=== PATIENT | male | born 1950 | race Caucasian/White ===

== ENCOUNTER → 2016-03-28 | Outpatient (CLI) | payer OTHER, BC ==
[~2016-03-28] MED LIST: CETI10TA10 PO; EPP3; GLUCPOW41 PO; MULTCAP42 PO; NEBI20TA2 PO; OMEGCAP2 PO; ROSU20TA PO; SENNTAB23 PO; TADA5TAB11 PO; TYLER650 PO; VITACAP26 PO
[2016-03-28 11:46] LABS: BLOOD UREA NITROGEN 16 mg/dl (7-18); BUN/CREATININE RATIO 19.3 (10-20); CALCIUM 9.7 mg/dl (8.5-10.1); CARBON DIOXIDE 23 mmol/L (21-32); CHLORIDE 109 mmol/L (98-107); CREATININE 0.82 mg/dl (0.60-1.40); GLUCOSE 96 mg/dl (70-99); POTASSIUM 4.3 mmol/L (3.5-5.1); SODIUM 142 mmol/L (136-145)
== END | disposition home or self-care (01) ==
LOC: C.LABBC 09:10
PROVIDERS: ATTEND Internal Medicine Geriatric Medicine
DX: Z11.59 Encounter for screening for other viral diseases (principal); I10 Essential (primary) hypertension

== ENCOUNTER → 2016-09-06 | Outpatient (CLI) | payer OTHER, BC ==
[2016-09-06 11:32] LABS: ESTIMATED AVERAGE GLUCOSE 120 mg/dl; HA1C FLAG Normal (Normal)
[2016-09-06 11:33] LABS: BLOOD UREA NITROGEN 17 mg/dl (7-18); BUN/CREATININE RATIO 20.1 (10-20); CALCIUM 9.5 mg/dl (8.5-10.1); CARBON DIOXIDE 26 mmol/L (21-32); CHLORIDE 109 mmol/L (98-107); CREATININE 0.85 mg/dl (0.60-1.40); GLUCOSE 111 mg/dl (70-99); POTASSIUM 4.2 mmol/L (3.5-5.1); SODIUM 141 mmol/L (136-145)
[2016-09-06 12:48] LABS: HEMATOCRIT 47.4 % (42-52); MEAN CELL VOLUME 89.3 fL (80-100); MEAN CORPUSCULAR HEMOGLOBIN 30.3 pg (25-34); MEAN PLATELET VOLUME 12.4 fL (7.4-10.4); PLATELET COUNT 130 K/uL (130-400); RED BLOOD COUNT 5.31 M/uL (4.7-6.1); WHITE BLOOD COUNT 5.19 K/uL (4.8-10.8)
[2016-09-06 12:52] LABS: BASO % 0.4 %; BASO ABS # 0.02 K/uL (0-0.2); COMPLETE YES; EOS % 1.5 %; IG% 0.2 %; LYMPH % 40.3 %; LYMPH ABS # 2.09 K/uL (1.2-3.4); MONO % 7.7 %; NEUT % 49.9 %
== END | disposition home or self-care (01) ==
LOC: C.LABBC 08:17
PROVIDERS: ATTEND Internal Medicine Geriatric Medicine
DX: I10 Essential (primary) hypertension (principal); E78.5 Hyperlipidemia, unspecified; R73.9 Hyperglycemia, unspecified; R35.1 Nocturia

== ENCOUNTER → 2017-03-08 | Outpatient (CLI) | payer OTHER, BC ==
[2017-03-08 14:12] LABS: ALBUMIN 3.8 gm/dl (3.4-5.0); ALT/SGPT 53 U/L (12-78); BLOOD UREA NITROGEN 20 mg/dl (7-18); CALCIUM 9.7 mg/dl (8.5-10.1); CARBON DIOXIDE 24 mmol/L (21-32); CHOLESTEROL 181 mg/dl (0-200); CREATININE 0.79 mg/dl (0.60-1.40); GLUCOSE 93 mg/dl (70-99); POTASSIUM 4.2 mmol/L (3.5-5.1); SODIUM 138 mmol/L (136-145)
[2017-03-08 14:15] LABS: ALKALINE PHOSPHATASE 55 U/L (45-117); AST/SGOT 28 U/L (15-37)
== END | disposition home or self-care (01) ==
LOC: C.LAB 11:02
PROVIDERS: ATTEND Internal Medicine Geriatric Medicine
DX: I10 Essential (primary) hypertension (principal); E78.5 Hyperlipidemia, unspecified; R73.9 Hyperglycemia, unspecified

== ENCOUNTER → 2017-09-25 | Outpatient (CLI) | payer OTHER, BC ==
[2017-09-25 14:36] LABS: BLOOD UREA NITROGEN 18 mg/dl (7-18); CALCIUM 9.7 mg/dl (8.5-10.1); CARBON DIOXIDE 24 mmol/L (21-32); CHOLESTEROL 193 mg/dl (0-200); CREATININE 0.78 mg/dl (0.60-1.40); GLUCOSE 121 mg/dl (70-99); POTASSIUM 4.1 mmol/L (3.5-5.1); SODIUM 138 mmol/L (136-145)
== END | disposition home or self-care (01) ==
LOC: C.LABBC 11:06
PROVIDERS: ATTEND Internal Medicine Geriatric Medicine
DX: E78.5 Hyperlipidemia, unspecified (principal); I10 Essential (primary) hypertension

== ENCOUNTER 2022-06-22 20:01 | Inpatient (IN) ==
[2022-06-22] MEDS ORDERED: SODIUM CHLORIDE 0.9% 1000ML 1,000 ML IV SCH (20:45)
--- NOTE | 2022-06-22 20:59 | XRay Report ---
XR chest 1V portable CLINICAL HISTORY: weakness COMPARISON STUDY: Chest CT May 04, 2022. Chest radiograph June 08, 2022. FINDINGS: Left subclavian Ovpgsa-a-Wirh is in place. There is no pneumothorax or pleural effusion. No consolidation is identified. Linear lower lung densities favor atelectasis. No evidence for pulmonar y edema. Cardiomediastinal silhouette is stable. IMPRESSION: No acute cardiopulmonary findings. ACT 112: Negative or not required by law. Electronically signed by: Javy Salcedo M.D. 06/22/2022 8:57 PM
[2022-06-22 21:13] LABS: Albumin Globulin Ratio 1.1 (0.9-2); BUN Creatinine Ratio 50.7 (10-20); Bilirubin,Total 1.4 mg/dl (0.2-1.0); Calcium 8.4 mg/dl (8.6-10.3); Creatinine Clr Calc Pharmacy 90.2 ml/min; Est GFR (African American) 105.9 ml/min; Est GFR (Non-African American) 91.4 ml/min; Globulin 2.7 gm/dl (2.5-4.0); Potassium 3.4 mmol/L (3.5-5.1); Total Protein 5.7 gm/dl (6.0-8.3)
[2022-06-22 22:03] LABS: Basophils # (auto) 0.02 K/uL (0-0.2); Basophils % (auto) 0.2 %; Eosinophils # (auto) 0.41 K/uL (0-0.50); Eosinophils % (auto) 3.5 %; Hematocrit (blood only) 44.7 % (42.0-52.0); Hemoglobin 15.4 g/dl (14.0-18.0); Immature Granulocytes # (auto) 0.03 K/uL (0.01-0.20); Immature Granulocytes % (auto) 0.3 %; Lymphocytes # (auto) 1.67 K/uL (1.2-3.4); Lymphocytes % (auto) 14.4 %; Mean Corpuscular Hemoglobin 29.4 pg (25.0-34.0); Mean Corpuscular Hgb Conc 34.5 g/dL (32.0-36.0); Mean Corpuscular Volume 85.5 fL (80.0-100.0); Mean Platelet Volume 12.4 fL (9.4-12.4); Monocytes # (auto) 0.71 K/uL (0.11-0.59); Monocytes % (auto) 6.1 %; Neutrophils # (auto) 8.72 K/uL (1.40-6.50); Neutrophils % (auto) 75.5 %; Platelet Count 136 K/uL (130-400); RDW Standard Deviation 40.1 fL (36.4-46.3); Red Blood Count 5.23 M/uL (4.70-6.10); White Blood Count 11.56 K/ul (4.8-10.8)
[2022-06-22] MEDS ORDERED: HYDROmorphone INJ 0.5 MG/0.5 ML SYR IV PRN (22:03)
[2022-06-22] MEDS ORDERED: ONDANSETRON INJ 2 MG/ML 2 ML VIAL IV STA (22:03)
[2022-06-22 22:22] LABS: Appearance Urine Clear (Clear); Bacteria Urine Automated Negative (Negative); Blood Urine Negative (Negative); Color Urine Orange; Epithelial Cell Urine Auto >30 /lpf (0-5); Glucose Urine UA Negative (Negative); Ketones Urine Negative (Negative); Leukocyte Esterase Urine Trace (Negative); Nitrite Urine Positive (Negative); Protein Urine Negative (Negative); RBC Urine Automated 0-4 /hpf (0-4); Specific Gravity Urine 1.034 (1.000-1.030); Urobilinogen Urine Positive (Negative)
[2022-06-22 22:26] LABS: Bilirubin Urine 1+ (Negative)
[2022-06-23] MEDS ORDERED: OPTIRAY 320 100ml IV ONE (00:37)
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
--- NOTE | 2022-06-23 00:59 | CT Scan Report ---
Exam(s): CT ABDOMEN + PELVIS With Contrast Oral - High Density Amt: 30 ML GASTRO, IV Amt: 87 ML OPTIRAY 320 EXAM: CT Abdomen and Pelvis With Intravenous Contrast CLINICAL HISTORY: Reason for exam: upper abd pain, vomiting, diarrhea, panc CA. TECHNIQUE: Axial computed tomography images of the abdomen and pelvis with intravenous contrast. CTDI is 7.53 mGy and DLP is 433.99 mGy-cm. Automated exposure control was utilized for the study. A dose lowering technique was utilized adhering to the principles of ALARA. CONTRAST: Patient received 30 ML GASTRO of Oral - High Density and 87 ML OPTIRAY 320 of IV contrast COMPARISON: No relevant prior studies available. FINDINGS: Lung bases: There are multiple nodular opacities throughout the visualized lower lung monge. These have an appearance that suggests inflammatory etiology. ABDOMEN: Liver: There is extensive hepatic metastatic disease with approximately 40% per replacement of liver parenchyma by metastatic deposits. Gallbladder and bile ducts: Unremarkable. No calcified stones. No ductal dilation. Pancreas: There is dilatation of the main pancreatic duct measuring up to 0.7 cm. This is associated with atrophy of the pancreatic tail. There is a low-density pancreatic lesion in this region measuring 2.1 x 1. 87 m (image 28 series 2). Spleen: Unremarkable. No splenomegaly. Adrenals: Unremarkable. No mass. Kidneys and ureters: There is a nonobstructing left lower pole intrarenal calculus. There is a nonobstructing right midpole intrarenal calculus. Stomach and bowel: There is mild fluid distention of multiple upper abdominal small bowel loops without focal point of obstruction. Contrast extends all the way to the:. No mucosal thickening. PELVIS: Appendix: No findings to suggest acute appendicitis. Bladder: Unremarkable. No mass. Reproductive: Unremarkable as visualized. ABDOMEN and PELVIS: Intraperitoneal space: There is a small volume of free fluid in the pelvis. No free air. Bones/joints: Degenerative disease of the thoracolumbar spine. No acute fracture. No dislocation. Soft tissues: Unremarkable. Vasculature: There is diffuse atherosclerotic calcification of the aorta and its major branch vessels. No abdominal aortic aneurysm. Lymph nodes: Unremarkable. No enlarged lymph nodes. IMPRESSION: 1. No acute pathology in the abdomen or pelvis. No evidence for bowel obstruction. 2. Findings of significant hepatic metastatic disease as well as a low- density lesion in the pancreas compatible with patient's given clinical history of pancreatic cancer. 3. Nodular opacities throughout the lungs which appear inflammatory but correlation with prior thoracic imaging is recommended. In the absence of prior thoracic imaging, further evaluation with dedicated thoracic CT is recommended on a nonemergent basis. Electronically signed by: Brayan Moeller MD 06/23/22 00:58 AM
[2022-06-23] MEDS: SODIUM CHLORIDE 0.9% 1000ML 1,000 ML IV SCH ×2 (01:49→10:08)
[2022-06-23] MEDS ORDERED: chlorproMAZINE HCL 25 MG TAB PO ONE (01:51)
[2022-06-23] MEDS ORDERED: PROCHLORPERAZINE MALEATE 10 MG TAB PO PRN (01:57)
[2022-06-23] MEDS ORDERED: CALCIUM CARBONATE 500 MG CHEWABLE TAB PO PRN (01:57)
[2022-06-23] MEDS ORDERED: EPINEPHrine INJ 1 MG/ML AMP IM PRN (03:02)
[2022-06-23] MEDS ORDERED: ACETAMINOPHEN 325 MG TAB PO PRN (03:03)
[2022-06-23] MEDS: LORazepam 0.5 MG TAB SL PRN ×2 (05:18→21:13)
[2022-06-23] MEDS: ASCORBIC ACID 500 MG TAB PO SCH (08:25)
[2022-06-23] MEDS: APIXABAN 5 MG TABLET PO SCH ×2 (08:25→21:13)
[2022-06-23] MEDS: CETIRIZINE HCL 10 MG TABLET PO SCH (08:25)
[2022-06-23] MEDS: MULTIVITAMIN TAB PO SCH (08:25)
[2022-06-23] MEDS: OMEGA-3 (PURIFIED FISH OIL) 1 GM CAP PO SCH ×2 (08:26→08:32)
--- NOTE | 2022-06-23 08:41 | Hospitalist Progress Note ---
Date of Service June 23, 2022 Assessment & Plan (1) Pancreatic cancer metastasized to liver: Plan: Acute nausea and vomiting with history of metastatic pancreatic cancer S/p chemotherapy one week prior to admission FOLFIRINOX 06/14/22 is an investigational study He has received IV fluids the prior 2 days in the clinic. Continue IV antiemetics and parenteral hydration (2) HTN (hypertension): Plan: Chronic and stable some mention of white coat hypertension , on metoprolol (3) DVT (deep venous thrombosis): Plan: DVT noted in may 19, on apixiban Admission and Anticipated Discharge Date Admission Date: June 23, 2022 Subjective Patient is feeling better did eat some breakfast not having additional abdominal pain diarrhea nausea or vomiting Physical Exam Physical Exam: He appears in no distress he is slightly forgetful his card exam is regular lungs are clear I cannot feel any defined organomegaly although his liver looks fairly large on imaging Abdomen is with normal bowel sounds soft no guarding no acute abdomen Results & Data Results & Data Vital Signs (Past 12 Hours) Vital Signs Temp Pulse Pulse Resp BP BP Pulse Ox 06/23/22 07:13 97.9 F 59 L 16 125/69 96 06/23/22 04:37 97.5 F L 61 16 124/76 96 06/23/22 04:00 54 L 21 109/50 L 96 06/23/22 03:30 54 L 17 115/56 L 94 06/23/22 04:24 55 L 18 109/50 L 96 06/23/22 03:00 55 L 16 104/48 L 94 06/23/22 02:32 56 L 26 H 95 06/23/22 01:30 57 L 21 131/61 95 06/23/22 01:00 58 L 17 124/56 L 95 06/23/22 00:45 85 26 H 06/23/22 00:00 59 L 20 135/64 96 06/22/22 23:30 60 21 130/66 97 06/22/22 23:00 60 21 137/70 96 06/23/22 00:27 58 L 06/22/22 22:30 56 L 18 132/67 95 06/22/22 22:00 52 L 15 151/70 H 99 06/22/22 21:30 55 L 24 151/73 H 95 06/22/22 21:00 54 L 18 138/69 95 06/22/22 21:26 56 L 18 96 O2 Del Method 06/23/22 07:13 Room Air 06/23/22 04:37 Room Air 06/23/22 04:00 06/23/22 03:30 06/23/22 04:24 Room Air 06/23/22 03:00 06/23/22 02:32 06/23/22 01:30 06/23/22 01:00 06/23/22 00:45 06/23/22 00:00 06/22/22 23:30 06/22/22 23:00 06/23/22 00:27 06/22/22 22:30 06/22/22 22:00 06/22/22 21:30 06/22/22 21:00 06/22/22 21:26 Room Air Laboratory Results Reviewed CBC Reviewed PRP Reviewed LFT Diagnostic Findings CT abdomen pelvis, 06/22/22 significant hepatic metastatic disease as well as a low- density lesion in the pancreas compatible with patient's given clinical history of pancreatic cancer. Nodular opacities throughout the lungs which appear inflammatory but correlation with prior thoracic imaging is recommended. PG Care Time/CCT Total # of Minutes Spent Total Time Spent with Patient: Total time spent is greater than 50% in coordination of care (as documented) at patient's floor/unit and/or counseling patient: Coding Level of Care Code 44516 SUB INP/OBS CARE 2/35MIN Diagnoses Pancreatic cancer metastasized to liver C25.9; C78.7 HTN (hypertension) I10 DVT (deep venous thrombosis) I82.409
[2022-06-23] MEDS ORDERED: POTASSIUM CHLORIDE 20 MEQ in SODIUM CHLORIDE 0.9% 1000ML 1,000 ML IV SCH (08:51)
[2022-06-23] MEDS ORDERED: NON-FORMULARY MEDICATION (Glucosamine-Chondroit-Vit C-Mn 500-400 mg Capsule) PO SCH (09:00)
[2022-06-23] MEDS: METOPROLOL TARTRATE 25 MG TAB PO SCH ×2 (09:37→21:13)
[2022-06-23] MEDS: NSS + 20MEQ KCL 20 MEQ/1,000 ML BAG IV SCH ×2 (10:03→23:53)
[2022-06-23] MEDS: ONDANSETRON 8MG OD TAB PO PRN (16:49)
[2022-06-23 18:28] LABS: Adenovirus F 40/41 PCR Not Detected (NotDetected); Astrovirus PCR Not Detected (NotDetected); Campylobacter PCR Not Detected (NotDetected); Cryptosporidium PCR Not Detected (NotDetected); Cyclospora cayetanensis PCR Not Detected (NotDetected); Entamoeba histolytica PCR Not Detected (NotDetected); Enteroaggregative E.coli(EAEC) Not Detected (NotDetected); Enteropathogenic E.coli (EPEC) Not Detected (NotDetected); Enterotoxigenic E.coli (ETEC) Not Detected (NotDetected); Giardia lamblia PCR Not Detected (NotDetected); Norovirus GI/GII PCR Not Detected (NotDetected); Plesiomonas shigelloides PCR Not Detected (NotDetected); Rotavirus A PCR Not Detected (NotDetected); Salmonella PCR Not Detected (NotDetected); Sapovirus PCR Not Detected (NotDetected); Shiga-like Toxin E.coli (STEC) Not Detected (NotDetected); Shigella/Enteroinvasive E.coli Not Detected (NotDetected); Vibrio cholerae PCR Not Detected (NotDetected); Vibrio species PCR Not Detected (NotDetected); Yersinia enterocolitica PCR Not Detected (NotDetected)
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
[2022-06-23] MEDS ORDERED: DOCUSATE SODIUM 100 MG CAP PO SCH (21:00)
[2022-06-23] MEDS ORDERED: OMEGA-3 (PURIFIED FISH OIL) 1 GM CAP PO SCH (21:00)
[2022-06-23] MEDS: ROSUVASTATIN CALCIUM 20 MG TAB PO SCH (21:13)
--- NOTE | 2022-06-23 22:54 | Electrocardiogram Report ---
Test Reason : Blood Pressure : / mmHG Vent. Rate : 053 BPM Atrial Rate : 053 BPM P-R Int : 134 ms QRS Dur : 098 ms QT Int : 512 ms P-R-T Axes : 028 -17 026 degrees QTc Int : 480 ms Sinus bradycardia Nonspecific T wave abnormality Prolonged QT Abnormal ECG When compared with ECG of 04-MAY-2022 11:19, Nonspecific T wave inversion now evident in Anterior leads Confirmed by Matias Dover ([id number]) on 06/23/2022 10:54:06 PM Referred By: Cassandra Amador Confirmed By:Matias Dover
[2022-06-23] MEDS ORDERED: SCOPOLAMINE 1 MG TDSY TD SCH (23:45)
[2022-06-24] MEDS: ONDANSETRON 8MG OD TAB PO PRN (07:39)
[2022-06-24] MEDS: LOPERAMIDE HCL 2 MG CAP PO SCH ×5 (08:44→20:17)
[2022-06-24] MEDS: APIXABAN 5 MG TABLET PO SCH ×2 (08:45→20:18)
[2022-06-24] MEDS: ASCORBIC ACID 500 MG TAB PO SCH (08:45)
[2022-06-24] MEDS: CETIRIZINE HCL 10 MG TABLET PO SCH (08:45)
[2022-06-24] MEDS: MULTIVITAMIN TAB PO SCH (08:45)
[2022-06-24] MEDS: METOPROLOL TARTRATE 25 MG TAB PO SCH ×2 (08:46→20:18)
[2022-06-24 09:07] LABS: Basophils # (auto) 0.02 K/uL (0-0.2); Basophils % (auto) 0.3 %; Eosinophils # (auto) 0.35 K/uL (0-0.50); Eosinophils % (auto) 4.4 %; Hematocrit (blood only) 40.6 % (42.0-52.0); Hemoglobin 13.9 g/dl (14.0-18.0); Immature Granulocytes # (auto) 0.03 K/uL (0.01-0.20); Immature Granulocytes % (auto) 0.4 %; Lymphocytes # (auto) 1.12 K/uL (1.2-3.4); Lymphocytes % (auto) 14.1 %; Mean Corpuscular Hemoglobin 29.8 pg (25.0-34.0); Mean Corpuscular Hgb Conc 34.2 g/dL (32.0-36.0); Mean Corpuscular Volume 87.1 fL (80.0-100.0); Mean Platelet Volume 11.5 fL (9.4-12.4); Monocytes # (auto) 0.61 K/uL (0.11-0.59); Monocytes % (auto) 7.7 %; Neutrophils % (auto) 73.1 %; Platelet Count 145 K/uL (130-400); RDW Coefficient of Variation 13.4 % (11.5-14.5); RDW Standard Deviation 41.9 fL (36.4-46.3); Red Blood Count 4.66 M/uL (4.70-6.10); White Blood Count 7.93 K/ul (4.8-10.8)
[2022-06-24 09:19] LABS: Albumin Level 2.4 gm/dl (3.4-5.0); BUN Creatinine Ratio 54.9 (10-20); Calcium 7.6 mg/dl (8.6-10.3); Creatinine Clr Calc Pharmacy 127.1 ml/min; Est GFR (African American) 122.7 ml/min; Est GFR (Non-African American) 105.9 ml/min; Globulin 2.4 gm/dl (2.5-4.0); Magnesium 1.9 mg/dl (1.7-2.4); Potassium 3.6 mmol/L (3.5-5.1); Total Protein 4.8 gm/dl (6.0-8.3)
[2022-06-24] MEDS: SODIUM CHLORIDE 0.9% 1000ML 1,000 ML IV SCH ×2 (10:22→18:07)
[2022-06-24] MEDS: CHECK SCOPOLAMINE PATCH PLACEMENT SCH ×2 (10:24→18:07)
[2022-06-24] MEDS: PSYLLIUM or GUAR GUM FIBER POWDER PACKET PO SCH (10:25)
[2022-06-24] MEDS: NSS + 20MEQ KCL 20 MEQ/1,000 ML BAG IV SCH ×3 (13:55→18:02)
[2022-06-24] MEDS ORDERED: LORazepam 0.5 MG TAB SL PRN (16:43)
[2022-06-24] MEDS ORDERED: ACETAMINOPHEN 500 MG TAB PO PRN (16:43)
[2022-06-24] MEDS ORDERED: ONDANSETRON INJ 2 MG/ML 2 ML VIAL IV ONE (16:44)
[2022-06-24] MEDS ORDERED: LORazepam 2 MG/1 ML VIAL IV STA (16:45)
--- NOTE | 2022-06-24 17:18 | Hospitalist Progress Note ---
Date of Service June 24, 2022 Assessment & Plan (1) Pancreatic cancer metastasized to liver: Plan: Acute nausea and vomiting with history of metastatic pancreatic cancer S/p chemotherapy one week prior to admission FOLFIRINOX 06/14/22 is an investigational study He has received IV fluids the prior 2 days in the clinic. Continue IV antiemetics and parenteral hydration, will try scheduled Reglan, pt states zofran did not work, and use prn lorazepam for nausea also since infectious diarrhea has been ruled out will use Imodium and Metamucil (2) HTN (hypertension): Plan: Chronic and stable some mention of white coat hypertension , on metoprolol (3) DVT (deep venous thrombosis): Plan: DVT noted in may 19, on apixiban Admission and Anticipated Discharge Date Admission Date: June 23, 2022 Subjective Patient and his for in the room when I revisited the patient in the afternoon we discussed the etiologies of his nausea vomiting is persistent nausea his insomnia we called his daughter Ana on speaker phone and try to get to some of their questions. He seems their ill prepared and understanding the gravity of pancreatic cancer was metastatic to the liver and are unsure about what his physical life will be like as it progresses. Physical Exam Physical Exam: Patient is awake and alert. Card exam is regular Lungs are clear Abdomen is NABS and soft there is an umbilical hernia which is reducible I cannot feel any defined organomegaly Results & Data Results & Data Vital Signs (Past 12 Hours) Vital Signs Temp Pulse Resp BP Pulse Ox O2 Del Method 06/24/22 15:11 98.2 F 62 18 137/71 96 Room Air 06/24/22 07:09 97.7 F 59 L 16 124/67 95 Room Air Diagnostic Findings reviewed cbc reviewed prp reviewed cmp PG Care Time/CCT Total # of Minutes Spent Total Time Spent with Patient: Total time spent is greater than 50% in coordination of care (as documented) at patient's floor/unit and/or counseling patient: Coding Level of Care Code 98429 SUB INP/OBS CARE 2/35MIN Diagnoses Pancreatic cancer metastasized to liver C25.9; C78.7 HTN (hypertension) I10 DVT (deep venous thrombosis) I82.409
[2022-06-24] MEDS: METOCLOPRAMIDE HCL 5 MG TABLET PO SCH (20:17)
[2022-06-24] MEDS: QUEtiapine FUMARATE 25 MG TABLET PO SCH (20:18)
[2022-06-24] MEDS: ROSUVASTATIN CALCIUM 20 MG TAB PO SCH (20:19)
[2022-06-24] MEDS ORDERED: ONDANSETRON 4 MG OD TAB PO SCH (21:00)
[2022-06-25] MEDS: LOPERAMIDE HCL 2 MG CAP PO SCH ×6 (01:24→21:14)
[2022-06-25] MEDS: NSS + 20MEQ KCL 20 MEQ/1,000 ML BAG IV SCH ×2 (04:05→15:22)
[2022-06-25 07:21] LABS: Basophils # (auto) 0.01 K/uL (0-0.2); Basophils % (auto) 0.2 %; Eosinophils # (auto) 0.44 K/uL (0-0.50); Eosinophils % (auto) 7.3 %; Hematocrit (blood only) 40.1 % (42.0-52.0); Hemoglobin 13.6 g/dl (14.0-18.0); Immature Granulocytes # (auto) 0.02 K/uL (0.01-0.20); Immature Granulocytes % (auto) 0.3 %; Lymphocytes # (auto) 1.32 K/uL (1.2-3.4); Lymphocytes % (auto) 21.8 %; Mean Corpuscular Hemoglobin 29.4 pg (25.0-34.0); Mean Corpuscular Hgb Conc 33.9 g/dL (32.0-36.0); Mean Corpuscular Volume 86.8 fL (80.0-100.0); Mean Platelet Volume 11.3 fL (9.4-12.4); Monocytes % (auto) 11.6 %; Neutrophils # (auto) 3.57 K/uL (1.40-6.50); Neutrophils % (auto) 58.8 %; Platelet Count 148 K/uL (130-400); RDW Coefficient of Variation 13.7 % (11.5-14.5); RDW Standard Deviation 42.5 fL (36.4-46.3); Red Blood Count 4.62 M/uL (4.70-6.10); White Blood Count 6.06 K/ul (4.8-10.8)
[2022-06-25 07:39] LABS: Albumin Globulin Ratio 1.1 (0.9-2); Albumin Level 2.4 gm/dl (3.4-5.0); BUN Creatinine Ratio 46.4 (10-20); Calcium 7.6 mg/dl (8.6-10.3); Creatinine Clr Calc Pharmacy 115.7 ml/min; Est GFR (African American) 118.1 ml/min; Est GFR (Non-African American) 101.9 ml/min; Globulin 2.2 gm/dl (2.5-4.0); Magnesium 1.8 mg/dl (1.7-2.4); Potassium 3.6 mmol/L (3.5-5.1); Total Protein 4.6 gm/dl (6.0-8.3)
[2022-06-25] MEDS: PSYLLIUM or GUAR GUM FIBER POWDER PACKET PO SCH (08:39)
[2022-06-25] MEDS: APIXABAN 5 MG TABLET PO SCH ×2 (08:40→20:49)
[2022-06-25] MEDS: METOCLOPRAMIDE HCL 5 MG TABLET PO SCH ×4 (08:41→20:49)
[2022-06-25] MEDS: ASCORBIC ACID 500 MG TAB PO SCH (08:41)
[2022-06-25] MEDS: CETIRIZINE HCL 10 MG TABLET PO SCH (08:41)
[2022-06-25] MEDS: METOPROLOL TARTRATE 25 MG TAB PO SCH ×2 (08:41→20:48)
[2022-06-25] MEDS ORDERED: DEXTROSE 10% 1,000 ML IV PRN (14:03)
[2022-06-25] MEDS ORDERED: dexAMETHasone 4 MG in SYRINGE 0 ML IV ONE (14:05)
[2022-06-25] MEDS ORDERED: LORazepam 0.5 MG TAB PO PRN (14:06)
--- NOTE | 2022-06-25 14:12 | Hospitalist Progress Note ---
Date of Service June 25, 2022 Assessment & Plan (1) Pancreatic cancer metastasized to liver: Plan: Acute nausea and vomiting with history of metastatic pancreatic cancer S/p chemotherapy one week prior to admission FOLFIRINOX 06/14/22 is an investigational study He has received IV fluids the prior 2 days in the clinic. Continue IV antiemetics and parenteral hydration we will switch parenteral hydration to PPN when available , will try to add Marinol to scheduled Reglan, +1 dose of dexamethasone intravenously and use prn lorazepam for nausea also since infectious diarrhea has been ruled out continue to offer as needed Imodium and try scheduled Metamucil (2) HTN (hypertension): Plan: Chronic and stable some mention of white coat hypertension , on metoprolol (3) DVT (deep venous thrombosis): Plan: DVT noted in may 19, on apixiban Admission and Anticipated Discharge Date Admission Date: June 23, 2022 Subjective Patient had good sleep with the Seroquel but still has persistent nausea and anorexia. We attempted to give him some Ativan last evening and then scheduled Reglan without much help. Patient cannot adequately tell me whether the schedule Ativan did help in any way. Subsequently with concern for mental status changes would not pursue Ativan significantly but today we will try 1 dose of dexamethasone instituting Marinol therapy and perhaps discontinuing Reglan 1 day if not much help Otherwise laboratories are stable he continues with loose bowel movements which have since been checked to be negative for infectious etiologies Physical Exam Physical Exam: Patient is awake and alert. Card exam is regular Lungs are clear Abdomen is NABS and soft there is an umbilical hernia which is reducible I cannot feel any defined organomegaly Results & Data Results & Data Vital Signs (Past 12 Hours) Vital Signs Temp Pulse Resp BP Pulse Ox O2 Del Method 06/25/22 08:39 64 06/25/22 07:41 98.6 F 66 16 124/64 94 Room Air PG Care Time/CCT Total # of Minutes Spent Total Time Spent with Patient: Total time spent is greater than 50% in coordination of care (as documented) at patient's floor/unit and/or counseling patient: Coding Level of Care Code 49316 SUB INP/OBS CARE 2/35MIN Diagnoses Pancreatic cancer metastasized to liver C25.9; C78.7 HTN (hypertension) I10 DVT (deep venous thrombosis) I82.409
[2022-06-25] MEDS ORDERED: FAMOTIDINE 20 MG in SYRINGE 3 ML IV ONE (15:15)
[2022-06-25] MEDS: QUEtiapine FUMARATE 25 MG TABLET PO SCH (20:48)
[2022-06-25] MEDS: droNABinol 2.5 MG CAP PO SCH (21:14)
[2022-06-25] MEDS: FAMOTIDINE 20 MG in SYRINGE 3 ML IV SCH (21:14)
[2022-06-26] MEDS: LOPERAMIDE HCL 2 MG CAP PO SCH ×6 (00:38→19:50)
[2022-06-26] MEDS: NSS + 20MEQ KCL 20 MEQ/1,000 ML BAG IV SCH ×2 (02:00→13:45)
[2022-06-26] MEDS ORDERED: Nursing to Pharmacy Communication SCH (04:15)
[2022-06-26 07:53] LABS: Hematocrit (blood only) 38.9 % (42.0-52.0); Mean Corpuscular Hemoglobin 29.2 pg (25.0-34.0); Mean Corpuscular Hgb Conc 33.4 g/dL (32.0-36.0); Mean Corpuscular Volume 87.4 fL (80.0-100.0); Mean Platelet Volume 9.8 fL (9.4-12.4); Platelet Count 167 K/uL (130-400); RDW Coefficient of Variation 13.8 % (11.5-14.5); RDW Standard Deviation 43.3 fL (36.4-46.3); Red Blood Count 4.45 M/uL (4.70-6.10); White Blood Count 3.89 K/ul (4.8-10.8)
[2022-06-26 08:17] LABS: Albumin Level 2.3 gm/dl (3.4-5.0); BUN Creatinine Ratio 34.9 (10-20); Calcium 7.5 mg/dl (8.6-10.3); Creatinine Clr Calc Pharmacy 102.9 ml/min; Est GFR (African American) 112.5 ml/min; Est GFR (Non-African American) 97.1 ml/min; Globulin 2.3 gm/dl (2.5-4.0); Magnesium 1.8 mg/dl (1.7-2.4); Phosphorus 2.4 mg/dl (2.5-4.9); Potassium 4.2 mmol/L (3.5-5.1); Total Protein 4.6 gm/dl (6.0-8.3)
--- NOTE | 2022-06-26 08:23 | Hospitalist Progress Note ---
Date of Service June 26, 2022 Assessment & Plan (1) Pancreatic cancer metastasized to liver: Plan: Acute nausea and vomiting with history of metastatic pancreatic cancer now improving S/p chemotherapy one week prior to admission FOLFIRINOX 06/14/22 is an investigational study Some reduction in his symptoms able to have some small bites of food on 06/26/2022, continue IV antiemetics and parenteral hydration , Seems to have some success with Marinol to scheduled Reglan, +1 dose of dexamethasone intravenously and use prn lorazepam for nausea also We have also begun IV Pepcid since infectious diarrhea has been ruled out continue to offer as needed Imodium (2) HTN (hypertension): Plan: Chronic and stable some mention of white coat hypertension , on metoprolol (3) DVT (deep venous thrombosis): Plan: DVT noted in may 19, on apixiban Admission and Anticipated Discharge Date Admission Date: June 23, 2022 Subjective Patient improvement of his nausea and vomiting able to eat some food this morning we will hold off on TPN/PPN. Continue Seroquel for sleep. Overall encouraging signs but this may be just be that we are getting away from the [facility] of his chemotherapeutic treatment. Continuing scheduled Reglan and dronabinol right now help with his GI effects Physical Exam Physical Exam: Patient is awake and alert. Card exam is regular Lungs are clear Abdomen is NABS and soft there is an umbilical hernia which is reducible Results & Data Results & Data Vital Signs (Past 12 Hours) Vital Signs Temp Pulse Resp BP Pulse Ox O2 Del Method 06/26/22 07:22 97.3 F L 55 L 16 127/72 95 Room Air 06/25/22 20:43 97.9 F 61 18 123/76 96 Room Air Laboratory Results Reviewed CBC Reviewed CMP PG Care Time/CCT Total # of Minutes Spent Total Time Spent with Patient: Total time spent is greater than 50% in coordination of care (as documented) at patient's floor/unit and/or counseling patient: Coding Level of Care Code 18226 SUB INP/OBS CARE 2/35MIN Diagnoses Pancreatic cancer metastasized to liver C25.9; C78.7 HTN (hypertension) I10 DVT (deep venous thrombosis) I82.409
[2022-06-26] MEDS: METOPROLOL TARTRATE 25 MG TAB PO SCH ×2 (08:52→22:16)
[2022-06-26] MEDS: APIXABAN 5 MG TABLET PO SCH ×2 (08:52→22:16)
[2022-06-26] MEDS: METOCLOPRAMIDE HCL 5 MG TABLET PO SCH ×4 (08:52→21:25)
[2022-06-26] MEDS: PSYLLIUM or GUAR GUM FIBER POWDER PACKET PO SCH (08:54)
[2022-06-26] MEDS: FAMOTIDINE 20 MG in SYRINGE 3 ML IV SCH ×2 (09:00→21:25)
[2022-06-26] MEDS: droNABinol 2.5 MG CAP PO SCH ×3 (09:10→21:25)
[2022-06-26] MEDS ORDERED: TPN/PPN CONSULT PHARMACY PRN (16:00)
[2022-06-26] MEDS: QUEtiapine FUMARATE 25 MG TABLET PO SCH (22:16)
[2022-06-27] MEDS: NSS + 20MEQ KCL 20 MEQ/1,000 ML BAG IV SCH ×2 (00:25→10:29)
[2022-06-27] MEDS: LOPERAMIDE HCL 2 MG CAP PO SCH ×6 (00:26→20:00)
[2022-06-27 07:08] LABS: Albumin Globulin Ratio 1.1 (0.9-2); Albumin Level 2.2 gm/dl (3.4-5.0); BUN Creatinine Ratio 32.8 (10-20); Bilirubin,Total 0.9 mg/dl (0.2-1.0); Calcium 7.2 mg/dl (8.6-10.3); Creatinine Clr Calc Pharmacy 116.1 ml/min; Est GFR (Non-African American) 98.4 ml/min; Magnesium 1.7 mg/dl (1.7-2.4); Phosphorus 1.8 mg/dl (2.5-4.9); Potassium 3.9 mmol/L (3.5-5.1); Total Protein 4.2 gm/dl (6.0-8.3)
[2022-06-27] MEDS: METOCLOPRAMIDE HCL 5 MG TABLET PO SCH ×4 (07:51→20:00)
[2022-06-27] MEDS: APIXABAN 5 MG TABLET PO SCH ×2 (07:51→21:17)
[2022-06-27] MEDS: METOPROLOL TARTRATE 25 MG TAB PO SCH ×2 (07:51→21:18)
[2022-06-27] MEDS: FAMOTIDINE 20 MG in SYRINGE 3 ML IV SCH ×2 (08:13→20:00)
[2022-06-27] MEDS: droNABinol 2.5 MG CAP PO SCH ×3 (08:13→20:00)
[2022-06-27] MEDS ORDERED: GADOBUTROL 65ML VIAL IV ONE (09:26)
--- NOTE | 2022-06-27 11:42 | Magnetic Resonance Report ---
Brain MRI WITH AND WITHOUT CONTRAST HISTORY: Headaches. History of pancreatic cancer. eval for metastatic disease TECHNIQUE: Multiplanar multisequence MRI of the brain was performed both before and after the intrave nous administration of contrast. COMPARISON STUDY: None. FINDINGS: There is no mass, hematoma, midline shift, or acute infarct. The paranasal sinuses are maryellen r. The mastoid air cells are clear. The ventricles and sulci demonstrate mild age-related involutiona l changes. Scattered foci of T2 hyperintensity seen within the periventricular and subcortical white matter are nonspecific but suggestive of mild microvascular ischemic changes. The major vascular flow voids at the skull base are well-maintained. Prior bilateral lens replacement. No abnormal enhanceme nt within the brain. Small linear focus of enhancement within the right parietal lobe on image 14 is consistent with a developmental venous anomaly. This is considered to be a normal variant. IMPRESSION: 1. No acute infarct or intracranial hemorrhage. 2. Mild atrophy and mild microvascular ischemic changes. 3. No evidence for intracranial metastatic disease. ACT 112: Negative or not required by law. Electronically signed by: José Manuel Pimentel M.D. 06/27/2022 11:40 AM
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
[2022-06-27] MEDS ORDERED: SODIUM PHOSPHATE 3 MMOL/1 ML INFUSION IV STA (16:33)
--- NOTE | 2022-06-27 16:40 | Hospitalist Progress Note ---
Date of Service June 27, 2022 Assessment & Plan (1) Pancreatic cancer metastasized to liver: Plan: Acute nausea and vomiting with history of metastatic pancreatic cancer now improving S/p chemotherapy one week prior to admission FOLFIRINOX 06/14/22 is an investigational study Some reduction in his symptoms able to have some small bites of food on 06/26/2022, continue IV antiemetics and parenteral hydration , Seems to have some success with Marinol to scheduled Reglan, use prn lorazepam for nausea also will continue IV Pepcid, one dose of decadron was used since infectious diarrhea has been ruled out continue to offer as needed Imodium (2) HTN (hypertension): Plan: Chronic and stable some mention of white coat hypertension , on metoprolol (3) DVT (deep venous thrombosis): Plan: DVT noted in may 19, on apixiban Plan Family requested Palliative care consult Admission and Anticipated Discharge Date Admission Date: June 23, 2022 Subjective Patient improvement of his nausea and vomiting able to eat some food, Has good sleep, continue Seroquel. Overall encouraging signs but this may be just be that we are getting away from the [place] of his chemotherapeutic treatment. Continuing scheduled Reglan and dronabinol but with some mild nausea will increase his dronabinol Physical Exam Physical Exam: Patient is awake and alert. Card exam is regular Lungs are clear Abdomen is NABS and soft there is an umbilical hernia which is reducible Results & Data Results & Data Vital Signs (Past 12 Hours) Vital Signs Temp Pulse Resp BP Pulse Ox O2 Del Method 06/27/22 15:44 98.2 F 60 18 119/70 96 Room Air 06/27/22 07:53 98.2 F 59 L 18 124/68 94 Room Air PG Care Time/CCT Total # of Minutes Spent Total Time Spent with Patient: Total time spent is greater than 50% in coordination of care (as documented) at patient's floor/unit and/or counseling patient: Coding Level of Care Code 87326 SUB INP/OBS CARE 2/35MIN Diagnoses Pancreatic cancer metastasized to liver C25.9; C78.7 HTN (hypertension) I10 DVT (deep venous thrombosis) I82.409
[2022-06-27] MEDS ORDERED: SODIUM PHOSPHATE 15 MMOL in DEXTROSE 5% 250 ML IV ONE (16:45)
[2022-06-27] MEDS: QUEtiapine FUMARATE 25 MG TABLET PO SCH (21:18)
[2022-06-28] MEDS: LOPERAMIDE HCL 2 MG CAP PO SCH ×6 (00:29→20:52)
--- NOTE | 2022-06-28 06:40 | Hospitalist Progress Note ---
Date of Service June 28, 2022 Assessment & Plan (1) Pancreatic cancer metastasized to liver: Plan: Nausea seems to be finally coming under control but is markedly atypical in its degree and duration so far out after his single cycle of reduced dose FOLFIRINOX. Nevertheless, there are no clear signs of obstruction, intra- abdominal physical disease that is causing problems, AERIAL INSTALLER metastases, or other immediate explanations beyond the combination of chemotherapy toxicity and the liver metastases. After extensive conversation with the patient, his and daughter we have determined that we will discontinue FOLFIRINOX altogether, concerned that even with dose reduction and more aggressive antinausea agents there will still be a risk of significant GI side effects and in reducing the doses of the agents, lesser potential efficacy. We have provisionally discussed alternative gemcitabine/Abraxane which is usually a much better tolerated regimen though in productive discussions with palliative care he is also looking at to what extent he wants to even pursue any moderately aggressive treatment versus a more pure symptom management based approach. [employer] also suggest some alternative possibilities with [facility] Anticipate discharge soon, we will reconvene with the patient in our offices next week to finalize a plan for going forward Plan Anticipate discharge soon, will reassess patient and his options next week with a provisional plan to consider gemcitabine/Abraxane though an ongoing discussion as to where chemotherapy versus palliative care makes the most sense for him going forward Admission and Anticipated Discharge Date Admission Date: June 23, 2022 Subjective Slowly recovering, he is able to ambulate in his room without great difficulty and able to take at least small meals reasonably well Physical Exam Physical Exam: Vital signs stable, lung and cardiac exam stable, abdomen does not seem to be markedly tender or distended Results & Data Results & Data Vital Signs (Past 12 Hours) Vital Signs Temp Pulse Resp BP Pulse Ox O2 Del Method 06/27/22 21:16 36.8 C 63 18 134/76 98 Room Air PG Care Time/CCT Total # of Minutes Spent Total Time Spent with Patient: Total time spent is greater than 50% in coordination of care (as documented) at patient's floor/unit and/or counseling patient: Coding Level of Care Code 18305 SUB INP/OBS CARE 1/25MIN History Problem Focused Exam Problem Focused Medical Decision Making High Complexity Diagnoses Pancreatic cancer metastasized to liver C25.9; C78.7
[2022-06-28 07:25] LABS: BUN Creatinine Ratio 16.4 (10-20); Calcium 7.3 mg/dl (8.6-10.3); Creatinine Clr Calc Pharmacy 116.1 ml/min; Est GFR (Non-African American) 98.4 ml/min; Magnesium 1.7 mg/dl (1.7-2.4); Phosphorus 2.7 mg/dl (2.5-4.9); Potassium 3.5 mmol/L (3.5-5.1)
[2022-06-28] MEDS: METOPROLOL TARTRATE 25 MG TAB PO SCH ×2 (07:52→20:52)
[2022-06-28] MEDS: droNABinol 2.5 MG CAP PO SCH ×3 (07:52→20:52)
[2022-06-28] MEDS: APIXABAN 5 MG TABLET PO SCH ×2 (07:53→20:52)
[2022-06-28] MEDS: METOCLOPRAMIDE HCL 5 MG TABLET PO SCH ×4 (07:53→20:53)
[2022-06-28] MEDS: FAMOTIDINE 20 MG in SYRINGE 3 ML IV SCH ×2 (07:57→21:04)
[2022-06-28] MEDS: HEPARIN 100 UNIT/ML 5ML FLUSH FLUSH PRN (07:57)
--- NOTE | 2022-06-28 10:01 | Palliative Care Progress Note ---
Date of Service June 28, 2022 Assessment & Plan (1) Palliative care encounter: Plan: I was unable to meet with family this morning. Mr. Pepper would like palliative care f/u as an outpatient if Dr. Perez is agreeable. Admission and Anticipated Discharge Date Admission Date: June 23, 2022 Subjective Reports feeling a little better this morning. Denies nausea or pain. Review of Systems Review of Systems: ESAS Pain 0/3 Dyspnea 0/3 Nausea 0/3 Drowsiness 0/3 Physical Exam Constitutional: no acute distress ENMT: Mouth: oral mucous membranes not dry Respiratory: normal respiratory effort; no labored breathing Neurologic: Speech / Cognition: normal cognition Psychiatric: Orientation: oriented x 3 Affect: euthymic affect Genitourinary: continent Results & Data Vital Signs (Past 12 Hours) Vital Signs Temp Pulse Resp BP Pulse Ox O2 Del Method 06/28/22 07:38 98.1 F 62 16 121/67 94 Room Air PG Care Time/CCT Total # of Minutes Spent Total Time Spent with Patient: Total time spent is greater than 50% in coordination of care (as documented) at patient's floor/unit and/or counseling patient: Coding Level of Care Code 42605 SUB INP/OBS CARE 1/25MIN Diagnoses Palliative care encounter Z51.5
--- NOTE | 2022-06-28 18:31 | Hospitalist Progress Note ---
Date of Service June 28, 2022 Assessment & Plan (1) Pancreatic cancer metastasized to liver: Plan: Acute nausea and vomiting with history of metastatic pancreatic cancer now improving S/p chemotherapy one week prior to admission FOLFIRINOX 06/14/22 is an investigational study Some reduction in his symptoms able to have some small bites of food on 06/26/2022, continue IV antiemetics and parenteral hydration , Seems to have some success with Marinol to scheduled Reglan, use prn lorazepam for nausea also will continue IV Pepcid, one dose of decadron was used since infectious diarrhea has been ruled out continue to offer as needed Imodium (2) HTN (hypertension): Plan: Chronic and stable some mention of white coat hypertension , on metoprolol (3) DVT (deep venous thrombosis): Plan: DVT noted in may 19, on apixiban Plan Family requested Palliative care consult appreciate their input and guidance Admission and Anticipated Discharge Date Admission Date: June 23, 2022 Subjective pt feels improved, increased diet still some mild nausea Physical Exam Physical Exam: Patient is awake and alert. Card exam is regular Lungs are clear Abdomen is NABS and soft there is an umbilical hernia which is reducible Results & Data Results & Data Vital Signs (Past 12 Hours) Vital Signs Temp Pulse Resp BP Pulse Ox O2 Del Method 06/28/22 15:45 97.9 F 64 18 113/62 94 Room Air 06/28/22 07:38 98.1 F 62 16 121/67 94 Room Air Laboratory Results Reviewed PRP PG Care Time/CCT Total # of Minutes Spent Total Time Spent with Patient: Total time spent is greater than 50% in coordination of care (as documented) at patient's floor/unit and/or counseling patient: Coding Level of Care Code 71958 SUB INP/OBS CARE 2/35MIN Diagnoses Pancreatic cancer metastasized to liver C25.9; C78.7 HTN (hypertension) I10 DVT (deep venous thrombosis) I82.409
[2022-06-28] MEDS: QUEtiapine FUMARATE 25 MG TABLET PO SCH (20:53)
[2022-06-29] MEDS: LOPERAMIDE HCL 2 MG CAP PO SCH ×4 (01:20→11:26)
[2022-06-29] MEDS: FAMOTIDINE 20 MG in SYRINGE 3 ML IV SCH (08:00)
[2022-06-29] MEDS: droNABinol 2.5 MG CAP PO SCH (08:00)
[2022-06-29] MEDS: APIXABAN 5 MG TABLET PO SCH (08:01)
[2022-06-29] MEDS: METOCLOPRAMIDE HCL 5 MG TABLET PO SCH ×2 (08:01→11:26)
[2022-06-29] MEDS: METOPROLOL TARTRATE 25 MG TAB PO SCH (08:01)
[2022-06-29] MEDS: HEPARIN 100 UNIT/ML 5ML FLUSH FLUSH PRN (15:05)
--- NOTE | 2022-06-29 17:28 | Hospitalist Progress Note ---
Date of Service June 29, 2022 Assessment & Plan (1) Pancreatic cancer metastasized to liver: Plan: Acute nausea and vomiting with history of metastatic pancreatic cancer now improving S/p chemotherapy one week prior to admission FOLFIRINOX 06/14/22 is an investigational study Some reduction in his symptoms able to have some small bites of food on 06/26/2022, continue IV antiemetics and parenteral hydration , Seems to have some success with Marinol to scheduled Reglan, use prn lorazepam for nausea also will continue IV Pepcid, one dose of decadron was used since infectious diarrhea has been ruled out continue to offer as needed Imodium (2) HTN (hypertension): Plan: Chronic and stable some mention of white coat hypertension , on metoprolol (3) DVT (deep venous thrombosis): Plan: DVT noted in may 19, on apixiban Plan Family requested Palliative care consult appreciate their input and guidance Admission and Anticipated Discharge Date Admission Date: June 23, 2022 Physical Exam Physical Exam: Patient is awake and alert. Card exam is regular Lungs are clear Abdomen is NABS and soft there is an umbilical hernia which is reducible Results & Data Results & Data Vital Signs (Past 12 Hours) Vital Signs Temp Pulse Pulse Resp BP BP Pulse Ox 06/29/22 13:28 97.9 F 63 70 17 120/69 118/60 96 06/29/22 08:07 97.9 F 70 17 120/69 96 O2 Del Method 06/29/22 13:28 06/29/22 08:07 Room Air PG Care Time/CCT Total # of Minutes Spent Total Time Spent with Patient: Total time spent is greater than 50% in coordination of care (as documented) at patient's floor/unit and/or counseling patient: Coding Diagnoses Pancreatic cancer metastasized to liver C25.9; C78.7 HTN (hypertension) I10 DVT (deep venous thrombosis) I82.409
--- NOTE | 2022-06-29 17:31 | Discharge Summary ---
Date of Service June 29, 2022 Admission HPI Per Admitting Provider The patient is a 72-year-old male with past medical history including hypertension, venous insufficiency, DVT, thrombocytopenia, pancreatic cancer metastasis metastatic to liver, arthritis, esophageal dysmotility, dyslipidemia, BPH, umbilical hernia and prediabetes. He is status post left subclavian port placement on 06/08/2022, and began chemotherapy last week. He reports his symptoms had been present prior to chemotherapy beginning, but it worsened since that time. He also notes the development of hiccups over the past several days. He has had a 32 pound weight loss in the past few months Significant laboratories: Total bilirubin 1.4, AST 64, ALT 85, ALP 506, albumin 3.0, sodium 133, potassium 3.4, glucose 156. CT abdomen pelvis with liver metastases, pancreatic lesion and multiple lung nodules Principal Diagnosis post chemotherapy nausea and vomiting metastatic pancreatic cancer Discharge Exam pt with no distress, abdomen is benign Discharge Data Allergies Allergy/AdvReac Type Severity Reaction Status Date / Time amlodipine [From Exforge] Allergy Severe Swelling Verified 06/23/22 00:58 of Lip/Tongue/Throat valsartan [From Exforge] Allergy Severe Swelling Verified 06/23/22 00:58 of Lip/Tongue/Throat atorvastatin [From Lipitor] Allergy Intermediate Muscle Pain Verified 06/23/22 00:58 aspirin Allergy Mild Hives Verified 06/23/22 00:58 NSAIDS (Non-Steroidal Allergy Unknown Unknown Verified 06/23/22 00:58 Anti-Inflamma benzonatate Allergy Unknown Verified 06/23/22 00:58 amoxicillin AdvReac Diarrhea Verified 06/23/22 00:58 Consultations 06/23/22 01:23 ED Decision to Admit Stat 06/27/22 12:28 Consult Palliative Care Routine Ordered Studies 06/22/22 22:02 CT Abd and Pelvis [CT abd pelvis oral and IV con] Stat 06/27/22 07:44 MRI Brain [MR brain wo/w con] Routine Hospital Course (1) Pancreatic cancer metastasized to liver: Acute nausea and vomiting with history of metastatic pancreatic cancer now improving S/p chemotherapy one week prior to admission FOLFIRINOX 06/14/22 is an investigational study Reduction in his symptoms able to have some small bites of food improvement with metoclopramide and dronabinol one dose of decadron was used infectious diarrhea has been ruled out (2) HTN (hypertension): Chronic and stable some mention of white coat hypertension , on metoprolol (3) DVT (deep venous thrombosis): DVT noted in may 19, on apixiban Plan Family requested Palliative care consult appreciate their input and guidance Total Time Total Time Spent Total Time Spent (In Minutes): It required greater than 30 minutes to prepare this patient for discharge Discharge Plan Discharge Items Patient Disposition: Home - Self-Care Reason For Visit: DEHYDRATION Discharge Diagnosis: Intractable nausea and vomiting metastatic pancreatic cancer Activity: Resume your previous activity Non-emergency contact: Primary Care Provider and Oncologist Call non-emergency contact if: your symptoms worsen Follow-up/Referrals: Osei Quiles DO [Primary Care Provider] - 07/04/22 11:30 am Diet: Regular Addtl Attending Provider Instructions: please continue to try to keep up your nutrition please try to diaz any worsening of nausea early in its presentation 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: due to need for frequent positioning due to cancer related pain, pt requires a hospital bed Pending Studies at Discharge: No Stand-Alone Forms: My [facility] Dick or Bro, Smoking Cessation Medications and DC Order Prescriptions: New quetiapine 25 mg Tablet 25 mg PO QPM PRN (Reason: withdrawal symptoms) Qty: 30 0RF Rx Instructions: try to take 5 days of a week and give yourself a day or 2 without metoclopramide HCl 5 mg Tablet 5 mg PO ACHS Qty: 120 4RF famotidine [Pepcid] 20 mg tablet 20 mg PO HS Qty: 30 3RF dronabinol 5 mg capsule 5 mg PO TID Qty: 90 3RF Continued epinephrine [EpiPen 2-Jaret] 0.3 mg/0.3 mL auto-injector 0.3 mg IM .COMPLEX PRN (Reason: anaphylaxis) Qty: 1 2RF Patient Comments: I've never taken it Rx Instructions: 0.3 mg IM DIRECTED PRN; nebivolol 5 mg tablet 5 mg PO QAM fluticasone propionate [Flonase Allergy Relief] 50 mcg/actuation spray,suspension 2 sprays intranasal QAM Qty: 15 docusate sodium [Colace] 100 mg capsule 100 mg PO QPM cetirizine [Zyrtec] 10 mg tablet 10 mg PO QAM calcium carbonate [Tums] 200 mg calcium (500 mg) Tablet,Chewable 200 mg PO BID PRN (Reason: gerd) Eliquis 5 mg Tablet 5 mg PO BID acetaminophen [Tylenol Arthritis Pain] 650 mg Tablet Extended Release 1,300 mg PO DAILY PRN (Reason: Pain) lorazepam 0.5 mg tablet 0.5 mg sublingual Q4 PRN (Reason: Anxiety) Qty: 20 0RF Discontinued hydrochlorothiazide 12.5 mg tablet 12.5 mg PO QAM Qty: 90 3RF multivitamin [Daily Multi-Vitamin] tablet 1 tab PO QAM rosuvastatin [Crestor] 20 mg tablet 20 mg PO QPM tadalafil [Cialis] 5 mg tablet 5 mg PO QAM omega [id number]-fish oil [Fish Oil] 1,000 mg (120 mg-180 mg) Capsule 1 cap PO QPM omega 2-vjn-bos-fish oil [Fish Oil] 1,000 mg (120 mg-180 mg) Capsule 2 cap PO QAM ondansetron HCl 8 mg tablet 8 mg PO Q8 PRN (Reason: Nausea) prochlorperazine maleate 10 mg tablet 10 mg PO Q6 PRN (Reason: Nausea) ascorbic acid (vitamin C) [Vitamin C] 500 mg Tablet 500 mg PO DAILY [id number] C-Mn [Glucosamine 1500 Complex] 500-400 mg Capsule 2 cap PO DAILY Discharge Orders: Discharge Order (Routine); Ordered 06/29/22 Ordered By: Hair Shah Admission Data Admit Date/Time: 06/23/22 01:53 Attending Provider: Hair Shah Admit Provider: Sukhdeep Rey Primary Care Provider: Osei Quiles Other Providers: Sukhdeep Rey ; Tiffanie Sevilla Other Interventions: Discharge Summary Assessment (RN) Last Done: 06/29/22 13:28 Coding Level of Care Code 26173 INP/OBS DISCH >30 MIN Diagnoses Pancreatic cancer metastasized to liver C25.9; C78.7 HTN (hypertension) I10 DVT (deep venous thrombosis) I82.409
== END 2022-06-29 15:40 | disposition home or self-care (01) | DRG 641 ==
LOC: ED 20:01 → 3E 06-23 01:53 → SUATTDRO 06-23 01:53 → 3E 06-23 04:24

== ENCOUNTER 2022-07-24 15:37 | Inpatient (IN) ==
[2022-07-24] MEDS ORDERED: SODIUM CHLORIDE 0.9% 1000ML 1,000 ML IV ONE ×3 (15:46→16:54)
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
[2022-07-24 16:17] LABS: Base Excess VBG -2.3 mEq/L; HCO3 VBG 21 mmol/L; Oxygen Saturation VBG 68.9 %; PCO2 VBG 32 mmHg (38-50); PO2 VBG 43 mmHg; pH VBG 7.43 (7.36-7.41)
[2022-07-24 16:25] LABS: Hematocrit (blood only) 33.4 % (42.0-52.0); Hemoglobin 11.6 g/dl (14.0-18.0); Mean Corpuscular Hemoglobin 29.6 pg (25.0-34.0); Mean Corpuscular Hgb Conc 34.7 g/dL (32.0-36.0); Mean Corpuscular Volume 85.2 fL (80.0-100.0); Mean Platelet Volume 12.3 fL (9.4-12.4); Nucleated RBC # (auto) 0.19 K/uL (0-0.12); Nucleated RBC % (auto) 0.7 %; Platelet Count 145 K/uL (130-400); RDW Coefficient of Variation 16.7 % (11.5-14.5); RDW Standard Deviation 50.6 fL (36.4-46.3); Red Blood Count 3.92 M/uL (4.70-6.10); White Blood Count 27.47 K/ul (4.8-10.8)
[2022-07-24] MEDS ORDERED: PIPERACILLIN/TAZOBACTAM 4.5 GM/120 ML BAG IV ONE (16:29)
[2022-07-24 16:42] LABS: Albumin Level 2.3 gm/dl (3.4-5.0); Bilirubin Direct 2.2 mg/dl (0-0.2); Bilirubin,Total 4.1 mg/dl (0.2-1.0); Calcium 8.3 mg/dl (8.6-10.3); Creatinine Clr Calc Pharmacy 131.7 ml/min; Est GFR (African American) 123.7 ml/min; Est GFR (Non-African American) 106.8 ml/min; Magnesium 1.6 mg/dl (1.7-2.4); Potassium 3.5 mmol/L (3.5-5.1); Total Protein 5.2 gm/dl (6.0-8.3)
[2022-07-24] MEDS ORDERED: ONDANSETRON INJ 2 MG/ML 2 ML VIAL IV STA (16:46)
[2022-07-24 16:49] LABS: Troponin I High Sensitivity 26.2 pg/ml (0-20)
[2022-07-24 16:50] LABS: Basophils # (auto) 0.06 K/uL (0-0.2); Basophils % (auto) 0.2 %; Echinocytes 1+; Eosinophils # (auto) 0.66 K/uL (0-0.50); Eosinophils % (auto) 2.4 %; Immature Granulocytes # (auto) 0.68 K/uL (0.01-0.20); Immature Granulocytes % (auto) 2.5 %; Lymphocytes # (auto) 1.56 K/uL (1.2-3.4); Lymphocytes % (auto) 5.7 %; Monocytes # (auto) 1.73 K/uL (0.11-0.59); Monocytes % (auto) 6.3 %; Neutrophils # (auto) 22.78 K/uL (1.40-6.50); Neutrophils % (auto) 82.9 %; Polychromasia 1+; Toxic Vacuolation 1+
[2022-07-24] MEDS: MAGNESIUM SULFATE / D5W 1 GM/100 ML BAG IV SCH ×2 (16:53→18:34)
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
[2022-07-24] MEDS ORDERED: SODIUM CHLORIDE 0.9% 1000ML 500 ML IV ONE (16:55)
[2022-07-24 17:01] LABS: INR 1.8 (0.9-1.1); Partial Thromboplastin Ratio 1.3; Partial Thromboplastin Time 35.4 Seconds (21.0-31.0); Prothrombin Time 19.1 Seconds (9.0-12.0)
--- NOTE | 2022-07-24 17:10 | XRay Report ---
XR chest 1V portable CLINICAL HISTORY: Sepsis TECHNIQUE: Single frontal radiograph of the chest was obtained. Comparison: Comparison is made to chest radiograph 06/22/2022 FINDINGS: A port catheter is seen. The cardiomediastinal silhouette is normal. Multifocal airspace opacities ar e seen. No evidence of pleural effusion or pneumothorax. IMPRESSION: Multifocal airspace opacities may represent atelectasis, pneumonia, and/or aspiration, increased from prior exam. Nodular densities in the lungs cannot be excluded. ACT 112: Negative or not required by law. Electronically signed by: Jens Shelton M.D. 07/24/2022 5:08 PM
[2022-07-24] MEDS ORDERED: OPTIRAY 320 500ml IV ONE (18:11)
[2022-07-24] MEDS ORDERED: VANCOMYCIN CONSULT ACTIVE PRN (18:13)
[2022-07-24] MEDS ORDERED: AZITHROMYCIN 500 MG in DEXTROSE 5% 250 ML IV ONE (18:30)
[2022-07-24 18:45] LABS: Appearance Urine Clear (Clear); Bacteria Urine Automated Negative (Negative); Blood Urine 2+ (Negative); Color Urine Dark Yellow; Glucose Urine UA Negative (Negative); Ketones Urine Negative (Negative); Leukocyte Esterase Urine Trace (Negative); Nitrite Urine Positive (Negative); Protein Urine Trace (Negative); Specific Gravity Urine 1.023 (1.000-1.030); Urobilinogen Urine Positive (Negative)
[2022-07-24] MEDS ORDERED: VANCOMYCIN HCL 1,750 MG in SODIUM CHLORIDE 0.9% 500 ML IV ONE (18:45)
--- NOTE | 2022-07-24 18:45 | CT Scan Report ---
CT angio chest PE protocol CLINICAL HISTORY: PE TECHNIQUE: Multidetector row helical CT of the chest was performed with angiographic protocol. Penaloza l and sagittal reformations were obtained. Coronal and sagittal MIPS were obtained from the axial ramiro a set and were submitted for review. Automated dose lowering techniques and/or adjustment according to patient size were utilized for this exam. CT DOSE: 1677.27 mGy.cm Comparison: Comparison is made to CT chest 05/04/2022 FINDINGS: Lungs and pleura: Moderate bilateral pleural effusions are seen with underlying atelectasis. Multifoc al nodular densities are seen throughout the lungs, new from prior exam. Smooth interlobular septal t hickening is seen. Heart and pericardium: Cardiomegaly is seen with biatrial enlargement. Vessels: No evidence of pulmonary embolism. Mediastinum and lori: Unremarkable. Chest wall and lower neck: A left port catheter is seen. Abdomen: For findings below the diaphragm, please refer to CT of the abdomen dated the same. Bones: Degenerative changes in the thoracic spine. IMPRESSION: Bilateral pleural effusions are seen with multifocal nodular opacities in the lungs as well as interl obular septal thickening. Findings may represent pulmonary edema with superimposed infectious/inflamm atory process or metastatic disease. ACT 112: Negative or not required by law. Electronically signed by: Jens Shelton M.D. 07/24/2022 6:43 PM
[2022-07-24 18:51] LABS: Adenovirus PCR Not Detected (NotDetected); Bordetella parapertussis PCR Not Detected (NotDetected); Bordetella pertussis PCR Not Detected (NotDetected); Chlamydia pneumoniae PCR Not Detected (NotDetected); Coronavirus 229E PCR Not Detected (NotDetected); Coronavirus CoV-2 (COVID19)PCR Not Detected (NotDetected); Coronavirus HKU1 PCR Not Detected (NotDetected); Coronavirus NL63 PCR Not Detected (NotDetected); Coronavirus OC43PCR Not Detected (NotDetected); Human Metapneumovirus PCR Not Detected (NotDetected); Influenza A PCR Not Detected (NotDetected); Influenza B PCR Not Detected (NotDetected); Mycoplasma pneumoniae PCR Not Detected (NotDetected); Parainfluenza Virus 1 PCR Not Detected (NotDetected); Parainfluenza Virus 2 PCR Not Detected (NotDetected); Parainfluenza Virus 3 PCR Not Detected (NotDetected); Parainfluenza Virus 4 PCR Not Detected (NotDetected); Respiratory Syncytial VirusPCR Not Detected (NotDetected)
[2022-07-24 18:52] LABS: Rhinovirus/Enterovirus PCR DETECTED (NotDetected)
[2022-07-24 19:02] LABS: Bilirubin Urine 1+ (Negative)
--- NOTE | 2022-07-24 19:08 | CT Scan Report ---
CT abd pelvis IV con only CLINICAL HISTORY: sepsis, known pancreatic cancer ?CBD dilatation TECHNIQUE: Helical axial images of the abdomen and pelvis were obtained and displayed. Automated dose lowering techniques and/or adjustment according to patient size were utilized for this exam. This e xam was performed with intravenous contrast. COMPARISON: Comparison is made to CT abdomen pelvis 06/23/2022 FINDINGS: Lower chest: For findings above the diaphragm, please see CT chest performed same day. Liver: Numerous hypodensities are seen in the liver, somewhat enlarged and more confluent and in the prior exam. Gallbladder and biliary tree: No calcified gallstones. Normal caliber wall. No intra- or extrahepatic biliary ductal dilation. Pancreas: Ill-defined pancreatic body mass is again seen with distal pancreatic duct enlargement and parenchymal atrophy. Spleen: Unremarkable. Adrenals: Left adrenal nodule measures 15 mm, increased from prior exam where it measured 30 mm. Kidneys and ureters: Nonobstructive nephrolithiasis is seen. Bladder: Unremarkable. Reproductive organs: Unremarkable. Bowel: Dependent soft tissue density in the lumen of the ureter may represent a food bolus, underlyin g mass is considered less likely. Lymph nodes Retroperitoneal: Subcentimeter lymph nodes are noted. Pelvic: Unremarkable. Mesenteric: Subcentimeter lymph nodes are noted. Peritoneum: Small free fluid is seen. Vessels: Atherosclerotic calcifications are seen. Abdominal wall: A fat-containing umbilical hernia is seen. Bones: Degenerative changes in the visualized spine. IMPRESSION: No acute abnormalities are seen. Interval worsening of hepatic metastatic disease and possible enlarg ement of a left adrenal nodule. Primary pancreatic mass is again seen. Small peritoneal/pelvic fluid is likely reactive. ACT 112: Negative or not required by law. Electronically signed by: Jens Shelton M.D. 07/24/2022 7:06 PM
--- NOTE | 2022-07-24 20:32 | Pharmacy Report ---
Pharmacy Vanc AUC Short Note - Date of Service July 24, 2022 - Assessment & Plan Assessment 72 year old M receiving vancomycin/Zosyn/Azithromycin for treatment of pneumonia. Pertinent microbiologic data includes: blood culture pending. Day # 1 of antimicrobial therapy. Plan Vancomycin * AUC/CARLI is the preferred PK/PD target for vancomycin * AUC guided dosing is effective and associated with decreased risk of nephrotoxicity compared to traditional trough targets * Vancomycin 1 gm IV q8 hours is predicted to achieve target AUC/CARLI of 400-600 mg/L.hr and may be associated with a 14 % risk of nephrotoxicity * Trough to be ordered if continued > 48 hours Pharmacy will continue to follow and will adjust dose/frequency as necessary. Thank you.
[2022-07-24] MEDS ORDERED: QUEtiapine FUMARATE 25 MG TABLET PO PRN (20:33)
[2022-07-24] MEDS ORDERED: LORazepam 0.5 MG TAB SL PRN (20:33)
[2022-07-24] MEDS ORDERED: ONDANSETRON INJ 2 MG/ML 2 ML VIAL IV PRN (20:34)
[2022-07-24] MEDS: droNABinol 2.5 MG CAP PO SCH (20:53)
[2022-07-24] MEDS: FAMOTIDINE 20 MG TAB PO SCH (21:04)
[2022-07-24] MEDS: APIXABAN 5 MG TABLET PO SCH (21:05)
[2022-07-24] MEDS: DOCUSATE SODIUM 100 MG CAP PO SCH (21:05)
[2022-07-24] MEDS: METOCLOPRAMIDE HCL 5 MG TABLET PO SCH (21:05)
[2022-07-24] MEDS: PIPERACILLIN/TAZOBACTAM 4.5 GM in DEXTROSE 5% 100 ML IV SCH (23:41)
[2022-07-25] MEDS: VANCOMYCIN HCL 1,000 MG in SODIUM CHLORIDE 0.9% 250 ML IV SCH ×3 (03:23→12:11)
[2022-07-25] MEDS ORDERED: ACETAMINOPHEN 500 MG TAB PO PRN (03:34)
[2022-07-25] MEDS ORDERED: CALCIUM CARBONATE 500 MG CHEWABLE TAB PO PRN (03:34)
[2022-07-25 04:57] LABS: Basophils # (auto) 0.05 K/uL (0-0.2); Basophils % (auto) 0.2 %; Eosinophils # (auto) 1.06 K/uL (0-0.50); Eosinophils % (auto) 4.9 %; Hematocrit (blood only) 30.2 % (42.0-52.0); Hemoglobin 10.2 g/dl (14.0-18.0); Immature Granulocytes # (auto) 0.65 K/uL (0.01-0.20); Lymphocytes # (auto) 1.23 K/uL (1.2-3.4); Lymphocytes % (auto) 5.6 %; Mean Corpuscular Hemoglobin 29.4 pg (25.0-34.0); Mean Corpuscular Hgb Conc 33.8 g/dL (32.0-36.0); Mean Platelet Volume 10.4 fL (9.4-12.4); Monocytes # (auto) 1.42 K/uL (0.11-0.59); Monocytes % (auto) 6.5 %; Neutrophils # (auto) 17.37 K/uL (1.40-6.50); Neutrophils % (auto) 79.8 %; Nucleated RBC # (auto) 0.06 K/uL (0-0.12); Nucleated RBC % (auto) 0.3 %; Platelet Count 143 K/uL (130-400); RDW Coefficient of Variation 16.7 % (11.5-14.5); RDW Standard Deviation 51.6 fL (36.4-46.3); Red Blood Count 3.47 M/uL (4.70-6.10); White Blood Count 21.78 K/ul (4.8-10.8)
[2022-07-25 05:09] LABS: Albumin Globulin Ratio 0.7 (0.9-2); Albumin Level 1.9 gm/dl (3.4-5.0); BUN Creatinine Ratio 32.1 (10-20); Bilirubin,Total 3.8 mg/dl (0.2-1.0); Calcium 7.2 mg/dl (8.6-10.3); Creatinine Clr Calc Pharmacy 122.3 ml/min; Est GFR (African American) 120.8 ml/min; Est GFR (Non-African American) 104.2 ml/min; Globulin 2.6 gm/dl (2.5-4.0); Magnesium 1.9 mg/dl (1.7-2.4); Phosphorus 2.8 mg/dl (2.5-4.9); Potassium 3.5 mmol/L (3.5-5.1); Total Protein 4.5 gm/dl (6.0-8.3)
[2022-07-25] MEDS ORDERED: HEPARIN 100 UNIT/ML 5ML FLUSH FLUSH PRN (06:53)
[2022-07-25] MEDS: METOCLOPRAMIDE HCL 5 MG TABLET PO SCH ×2 (08:59→12:10)
[2022-07-25] MEDS: PANCREAZE (LIPASE 10,500U) CAP PO SCH ×3 (09:00→17:42)
[2022-07-25] MEDS: APIXABAN 5 MG TABLET PO SCH (09:00)
[2022-07-25] MEDS: CETIRIZINE HCL 10 MG TABLET PO SCH (09:00)
[2022-07-25] MEDS: PIPERACILLIN/TAZOBACTAM 4.5 GM in DEXTROSE 5% 100 ML IV SCH ×2 (09:00→15:50)
[2022-07-25] MEDS: droNABinol 2.5 MG CAP PO SCH ×2 (09:06→13:11)
[2022-07-25] MEDS: guaiFENesin 600 MG TABCR PO SCH (09:14)
--- NOTE | 2022-07-25 10:36 | Electrocardiogram Report ---
Test Reason : Blood Pressure : / mmHG Vent. Rate : 076 BPM Atrial Rate : 076 BPM P-R Int : 116 ms QRS Dur : 098 ms QT Int : 402 ms P-R-T Axes : 033 016 056 degrees QTc Int : 452 ms Normal sinus rhythm Nonspecific ST and T wave abnormality Abnormal ECG When compared with ECG of 22-JUN-2022 20:19, No significant change was found Confirmed by Crispin Chapa ([id number]) on 07/25/2022 10:35:59 AM Referred By: REFERRED SELF Confirmed By:Crispin Chapa
[2022-07-25] MEDS: PANTOprazole 40 MG in SYRINGE 0 ML IV SCH (12:09)
--- NOTE | 2022-07-25 13:21 | Hospitalist Progress Note ---
Date of Service July 25, 2022 Assessment & Plan (1) Bilateral pneumonia: Plan: [employer] respiratory panel + for rhinovirus. Given his significant leukocytosis + elevated procal along with immunocompromised status bacterial superinfection is possible. Thus, cont zosyn; cont azithromycin. Droplet precautions for rhinovirus infection. Order tessalon pearles prn for cough. Cont mucinex BID. MRSA swab negative; will defer vancomycin coverage at this time. (2) Rhinovirus infection: Plan: [employer] panel + for such. see #1 above. (3) Pancreatic cancer metastasized to liver: Plan: severe stage 4 pancreatic cancer with extensive mets to liver, ?adrenal gland, ?lungs, etc he has done poorly with recent chemotherapy and continues to have failure to thrive with weight loss, refractory nausea, poor appetite, etc. LFTs continue to rise, and metastatic disease is progressing. while here focus on treating pneumonia, getting nausea to stop or at least be under better control, treating abd pain, and some how improving his anorexia. the anorexia will be difficult to improve given the extent of his cancer. he remains on marinol and this has not helped. agree with heme/onc consultation. agree with palliative care consultation to refine goals of care as prognosis is very poor. (4) Abdominal pain: Plan: likely multifactorial - hepatomegaly from the liver mets & capsular stretch/swelling, gastritis, esophagitis, the primary pancreatic mass itself, etc - could all be contributing. checking MRCP to r/o CBD obstruction. added IV ppi. added QID carafate. cont pepcid. dilaudid 0.25mg IV prn pain. (5) Abnormal LFTs: Plan: likely due to worsening metastatic tumor burden of liver. cannot rule out biliary obstruction given the ongoing rise of his t.bili, d.bili, and alk phos. CT a/p findings noted. Obtain MRCP - r/o CBD obstruction. (6) Nausea: Plan: Refractory to multiple meds. He has had nausea for many weeks, even months. Nausea preceded the institution of chemotherapy for his advanced pancreatic ca. Differential - biliary (obstruction of CBD) vs upper GI (esophagitis, gastritis) vs IT TECHNICIAN (brain mets, etc) vs infection-related (pneumonia) vs chemo-related vs combination of factors. Suspect combination of factors. Given his worsening abnormal LFTs that are in an obstructive pattern will obtain MRCP, r/o CBD obstruction/dilatation. [facility] such [facility] of [facility]. Add IV PPI. Add carafate qid. Add dilaudid 0.25mg prn for abdominal pain. Add zofran 4mg IV TID scheduled; stop scheduled reglan. Cont marinol. Check CT head - ensure no brain mets contributing to nausea. If all else fails could consider scheduled ativan. Could consider increasing his seroquel. Could consider aprepitant - a long-acting anti-emetic. (7) Sepsis: Plan: 2nd to #1 above. Cont broad-spectrum IV antibiotics for now. Follow blood cultures. (8) Pleural effusion: Plan: b/l effusions. likely transudative from severe hypoalbuminemia (albumin is 1.9). can't rule out exudative effusions from cancer. pneumonia could be contributing but much less likely. caution with IV fluids. (9) Oropharyngeal dysphagia: Plan: Speech consulted for swallow eval. Has severely dry mouth - we discussed ways to help this (ice chips, sucking on hard candy, Biotene, etc). Treat ?thrush with nystatin. If any esophagitis add carafate + IV PPI. (10) DVT (deep venous thrombosis): Plan: 05/2022 - RLE Doppler with - "Thrombosed superficial veins involving the greater saphenous vein and multiple varicosities of the medial knee." Remains on Eliquis BID Note - he has coagulopathy with INR of 1.8 - likely due to liver dysfunction in setting of liver infiltration from his cancer Continue Eliquis cautiously (11) Insomnia: Plan: scheduled seroquel HS scheduled melatonin HS QTc on EKG wnl (12) Acute hyponatremia: Plan: appears volume contracted on examination little to no PO intake I do not think the findings on chest CT are from volume overload - likely to be more so from low albumin he received saline boluses in the ER yesterday no fluid since check urine osm and urine Na give 1 Liter of isotonic fluid BMP am of note - cortisol wnl check TSH w/ next blood draw (13) Coagulopathy: Plan: INR 1.8 this admission last INR was 1.1 in April Eliquis can cause some elevation but it is usually mild (e.g. 1.3, 1.4) suspect the main culprit is decreased synthetic function in the setting of severe metastatic disease to the liver repeat INR in am for stability doubt vit K deficiency (14) Severe protein-calorie malnutrition: Plan: 10kg of weight loss in <2 months he cannot tolerate regular food I downgraded him to clears today to allow better tolerance in light of nausea, etc add boost breeze poor candidate for NG tube feedings for a variety of reasons poor candidate for TPN due to significantly abnormal LFTs, high risk for infection in light of recent chemotherapy and current infectious process, etc hopefully nausea/anorexia improve next 2-3 days (15) DVT prophylaxis: Plan: eliquis 5mg BID Plan son, daughter extensively updated at bedside very complex medical care and care coordination check QTc again tomorrow due to multiple QTc prolonging agents including seroquel, zofran, and azithromycin Admission and Anticipated Discharge Date Admission Date: July 24, 2022 Subjective tele stable overnight patient resting in bed son, daughter, and grandson are at bedside despite scheduled reglan he continues to have nausea nausea has been present since well before chemo was initiated for his pancreatic cancer additional complaints - 1. severely dry mouth with some buccal irritation 2. difficulty swallowing due to #1; denies odynophagia 3. abdominal pain - epigastric region - sometimes worse with eating 4. constipation - last BM was small and firm - typically has BMs about every 4- 5 days 5. cough, mainly dry 6. ongoing weight loss with poor appetite in general 7. insomnia - falls asleep but can't stay asleep; only slept 2 hours last pm family asks about his nutrition and what are the options if nausea/appetite don't improve Review of Systems Review of Systems: gen - no fevers or chills cv - no chest pain pulm - no dyspnea at rest neuro - no headaches GI - see HPI Physical Exam Physical Exam: gen - awake, alert, but looks very tired and worn out; pleasant mouth - MM dry; mild erythema of palate neck - no JVD heart - RRR, s1 s2, no murmur lungs - minimal fine rales bases, otherwise CTA b/l without any wheeze or increased work of breathing abd - liver edge palpable near the midline; very tender to palpation over the epigastric region; BS+; mildly distended; no splenomegaly ext - no edema, pulses 2+ b/l psych - a/o x 3 skin - no jaundice; port left upper chest clean eyes - slight icterus present Results & Data Results & Data Vital Signs (Past 12 Hours) Vital Signs Temp Pulse Pulse Resp BP Pulse Ox O2 Del Method 07/25/22 12:14 36.4 C L 71 20 109/71 93 Room Air 07/25/22 10:19 64 07/25/22 08:10 36.5 C 61 18 119/69 94 Room Air 07/25/22 03:40 36.5 C 70 18 106/65 91 Room Air 07/25/22 02:10 78 Laboratory Results Laboratory Results - last 24 hr 07/24/22 07/24/22 07/24/22 16:09 16:09 16:09 WBC 27.47 H RBC 3.92 L Hgb 11.6 L Hct 33.4 L MCV 85.2 MCH 29.6 MCHC 34.7 RDW Std Deviation 50.6 H RDW Coeff of Mary 16.7 H Plt Count 145 MPV 12.3 Immature Gran % (Auto) 2.5 Neut % (Auto) 82.9 Lymph % (Auto) 5.7 [place] % (Auto) 6.3 Eos % (Auto) 2.4 Baso % (Auto) 0.2 Neut # (Auto) 22.78 H Lymph # (Auto) 1.56 [place] # (Auto) 1.73 H Eos # (Auto) 0.66 H Baso # (Auto) 0.06 Immature Gran # (Auto) 0.68 H Absolute Nucleated RBC 0.19 H Nucleated RBC % (auto) 0.7 Toxic Vacuolation 1+ Polychromasia 1+ Echinocytes 1+ PT 19.1 H INR 1.8 H APTT 35.4 H PTT Ratio 1.3 Sodium 129 L Potassium 3.5 Chloride 99 Carbon Dioxide 21 Anion Gap 9 BUN 21 Creatinine 0.50 L Est Cr Clr Drug Dosing 131.7 Est GFR ( Amer) 123.7 Est GFR (Non-Af Amer) 106.8 BUN/Creatinine Ratio 42.0 H Glucose 120 H Lactate Calcium 8.3 L Phosphorus Magnesium 1.6 L Total Bilirubin 4.1 H Direct Bilirubin 2.2 H AST 135 H ALT 80 H Alkaline Phosphatase 629 H Troponin I High Sens 26.2 H Total Protein 5.2 L Albumin 2.3 L Globulin Albumin/Globulin Ratio Lipase 20 Procalcitonin Cortisol AM Sample Urine Color Urine Appearance Urine pH Ur Specific [place] Urine Protein Urine Glucose (UA) Urine Ketones Urine Blood Urine Nitrite Urine Bilirubin Urine Urobilinogen Ur Leukocyte Esterase Urine WBC (Auto) Urine RBC (Auto) U Hyaline Cast (Auto) U Epithel Cells (Auto) Urine Bacteria (Auto) Nasal Screen MRSA (PCR) Adenovirus (PCR) B. pertussis DNA (PCR) B.parapertussis DNA PCR C. pneumoniae DNA (PCR) Coronavirus OC43 (PCR) Coronavirus HKU1 (PCR) Coronavirus 229E (PCR) SARS-CoV-2 (PCR) Coronavirus NL63 (PCR) Human Metapneumovir PCR Influenza Type A (PCR) Influenza Type B (PCR) M. pneumoniae (PCR) Parainfluenza 1 (PCR) Parainfluenza 2 (PCR) Parainfluenza 3 (PCR) Parainfluenza 4 (PCR) RSV (PCR) Entero/Rhino (PCR) 07/24/22 07/24/22 07/24/22 16:09 17:47 17:57 WBC RBC Hgb Hct MCV MCH MCHC RDW Std Deviation RDW Coeff of Mary Plt Count MPV Immature Gran % (Auto) Neut % (Auto) Lymph % (Auto) [place] % (Auto) Eos % (Auto) Baso % (Auto) Neut # (Auto) Lymph # (Auto) [place] # (Auto) Eos # (Auto) Baso # (Auto) Immature Gran # (Auto) Absolute Nucleated RBC Nucleated RBC % (auto) Toxic Vacuolation Polychromasia Echinocytes PT INR APTT PTT Ratio Sodium Potassium Chloride Carbon Dioxide Anion Gap BUN Creatinine Est Cr Clr Drug Dosing Est GFR ( Amer) Est GFR (Non-Af Amer) BUN/Creatinine Ratio Glucose Lactate 2.6 H* Calcium Phosphorus Magnesium Total Bilirubin Direct Bilirubin AST ALT Alkaline Phosphatase Troponin I High Sens Total Protein Albumin Globulin Albumin/Globulin Ratio Lipase Procalcitonin 1.07 H Cortisol AM Sample Urine Color Urine Appearance Urine pH Ur Specific [place] Urine Protein Urine Glucose (UA) Urine Ketones Urine Blood Urine Nitrite Urine Bilirubin Urine Urobilinogen Ur Leukocyte Esterase Urine WBC (Auto) Urine RBC (Auto) U Hyaline Cast (Auto) U Epithel Cells (Auto) Urine Bacteria (Auto) Nasal Screen MRSA (PCR) Adenovirus (PCR) Not Detected B. pertussis DNA (PCR) Not Detected B.parapertussis DNA PCR Not Detected C. pneumoniae DNA (PCR) Not Detected Coronavirus OC43 (PCR) Not Detected Coronavirus HKU1 (PCR) Not Detected Coronavirus 229E (PCR) Not Detected SARS-CoV-2 (PCR) Not Detected Coronavirus NL63 (PCR) Not Detected Human Metapneumovir PCR Not Detected Influenza Type A (PCR) Not Detected Influenza Type B (PCR) Not Detected M. pneumoniae (PCR) Not Detected Parainfluenza 1 (PCR) Not Detected Parainfluenza 2 (PCR) Not Detected Parainfluenza 3 (PCR) Not Detected Parainfluenza 4 (PCR) Not Detected RSV (PCR) Not Detected Entero/Rhino (PCR) DETECTED A* 07/24/22 07/25/22 07/25/22 18:31 04:29 04:29 WBC 21.78 H RBC 3.47 L Hgb 10.2 L Hct 30.2 L MCV 87.0 MCH 29.4 MCHC 33.8 RDW Std Deviation 51.6 H RDW Coeff of Mary 16.7 H Plt Count 143 MPV 10.4 Immature Gran % (Auto) 3.0 Neut % (Auto) 79.8 Lymph % (Auto) 5.6 [place] % (Auto) 6.5 Eos % (Auto) 4.9 Baso % (Auto) 0.2 Neut # (Auto) 17.37 H Lymph # (Auto) 1.23 [place] # (Auto) 1.42 H Eos # (Auto) 1.06 H Baso # (Auto) 0.05 Immature Gran # (Auto) 0.65 H Absolute Nucleated RBC 0.06 Nucleated RBC % (auto) 0.3 Toxic Vacuolation Polychromasia Echinocytes PT INR APTT PTT Ratio Sodium 132 L Potassium 3.5 Chloride 104 Carbon Dioxide 23 Anion Gap 5 BUN 17 Creatinine 0.53 L Est Cr Clr Drug Dosing 122.3 Est GFR ( Amer) 120.8 Est GFR (Non-Af Amer) 104.2 BUN/Creatinine Ratio 32.1 H Glucose 109 H Lactate Calcium 7.2 L Phosphorus 2.8 Magnesium 1.9 Total Bilirubin 3.8 H Direct Bilirubin AST 97 H ALT 64 H Alkaline Phosphatase 564 H Troponin I High Sens Total Protein 4.5 L Albumin 1.9 L Globulin 2.6 Albumin/Globulin Ratio 0.7 L Lipase Procalcitonin Cortisol AM Sample Urine Color Dark Yellow Urine Appearance Clear Urine pH 7.0 Ur Specific [place] 1.023 Urine Protein Trace H Urine Glucose (UA) Negative Urine Ketones Negative Urine Blood 2+ H Urine Nitrite Positive A Urine Bilirubin 1+ H Urine Urobilinogen Positive H Ur Leukocyte Esterase Trace H Urine WBC (Auto) 1-5 Urine RBC (Auto) 10-30 H U Hyaline Cast (Auto) 1-5 U Epithel Cells (Auto) 5-10 H Urine Bacteria (Auto) Negative Nasal Screen MRSA (PCR) Adenovirus (PCR) B. pertussis DNA (PCR) B.parapertussis DNA PCR C. pneumoniae DNA (PCR) Coronavirus OC43 (PCR) Coronavirus HKU1 (PCR) Coronavirus 229E (PCR) SARS-CoV-2 (PCR) Coronavirus NL63 (PCR) Human Metapneumovir PCR Influenza Type A (PCR) Influenza Type B (PCR) M. pneumoniae (PCR) Parainfluenza 1 (PCR) Parainfluenza 2 (PCR) Parainfluenza 3 (PCR) Parainfluenza 4 (PCR) RSV (PCR) Entero/Rhino (PCR) 07/25/22 07/25/22 08:27 Unknown WBC RBC Hgb Hct MCV MCH MCHC RDW Std Deviation RDW Coeff of Mary Plt Count MPV Immature Gran % (Auto) Neut % (Auto) Lymph % (Auto) [place] % (Auto) Eos % (Auto) Baso % (Auto) Neut # (Auto) Lymph # (Auto) [place] # (Auto) Eos # (Auto) Baso # (Auto) Immature Gran # (Auto) Absolute Nucleated RBC Nucleated RBC % (auto) Toxic Vacuolation Polychromasia Echinocytes PT INR APTT PTT Ratio Sodium Potassium Chloride Carbon Dioxide Anion Gap BUN Creatinine Est Cr Clr Drug Dosing Est GFR ( Amer) Est GFR (Non-Af Amer) BUN/Creatinine Ratio Glucose Lactate Calcium Phosphorus Magnesium Total Bilirubin Direct Bilirubin AST ALT Alkaline Phosphatase Troponin I High Sens Total Protein Albumin Globulin Albumin/Globulin Ratio Lipase Procalcitonin Cortisol AM Sample 20.31 Urine Color Urine Appearance Urine pH Ur Specific [place] Urine Protein Urine Glucose (UA) Urine Ketones Urine Blood Urine Nitrite Urine Bilirubin Urine Urobilinogen Ur Leukocyte Esterase Urine WBC (Auto) Urine RBC (Auto) U Hyaline Cast (Auto) U Epithel Cells (Auto) Urine Bacteria (Auto) Nasal Screen MRSA (PCR) Negative Adenovirus (PCR) B. pertussis DNA (PCR) B.parapertussis DNA PCR C. pneumoniae DNA (PCR) Coronavirus OC43 (PCR) Coronavirus HKU1 (PCR) Coronavirus 229E (PCR) SARS-CoV-2 (PCR) Coronavirus NL63 (PCR) Human Metapneumovir PCR Influenza Type A (PCR) Influenza Type B (PCR) M. pneumoniae (PCR) Parainfluenza 1 (PCR) Parainfluenza 2 (PCR) Parainfluenza 3 (PCR) Parainfluenza 4 (PCR) RSV (PCR) Entero/Rhino (PCR) PG Care Time/CCT Total # of Minutes Spent Total Time Spent with Patient: Total time spent is greater than 50% in coordination of care (as documented) at patient's floor/unit and/or counseling patient: Coding Level of Care Code 22141 SUB INP/OBS CARE 3/50MIN Diagnoses Bilateral pneumonia J18.9 Lung location: unspecified part of lung Pneumonia type: due to unspecified organism Rhinovirus infection B34.8 Pancreatic cancer metastasized to liver C25.9; C78.7 Abdominal pain R10.9 Abnormal LFTs R79.89 Nausea R11.0 Sepsis A41.9 Sepsis acute organ dysfunction status: unspecified Sepsis type: sepsis due to unspecified organism Pleural effusion J90 Oropharyngeal dysphagia R13.12 DVT (deep venous thrombosis) I82.409 Insomnia G47.00 Acute hyponatremia E87.1 Coagulopathy D68.9 Severe protein-calorie malnutrition E43 DVT prophylaxis Z29.9 (1) Bilateral pneumonia Lung location: unspecified part of lung Pneumonia type: due to unspecified organism Qualified Code(s): J18.9 - Pneumonia, unspecified organism (7) Sepsis Sepsis acute organ dysfunction status: unspecified Sepsis type: sepsis due to unspecified organism Qualified Code(s): A41.9 - Sepsis, unspecified organism
[2022-07-25] MEDS: ONDANSETRON INJ 2 MG/ML 2 ML VIAL IV SCH (13:53)
[2022-07-25] MEDS ORDERED: NSS + 20MEQ KCL 20 MEQ/1,000 ML BAG IV SCH (14:00)
[2022-07-25] MEDS: HYDROmorphone INJ 0.5 MG/0.5 ML SYR IV PRN (15:55)
[2022-07-25] MEDS ORDERED: PHYTONADIONE 5 MG in DEXTROSE 5% 50 ML IV ONE (16:39)
[2022-07-25] MEDS: SUCRALFATE 1 GM/10 ML UDC PO SCH (17:42)
[2022-07-25] MEDS: NYSTATIN SUSP 500,000 U/5 ML UDC PO SCH (19:04)
[2022-07-25] MEDS: AZITHROMYCIN 500 MG in DEXTROSE 5% 250 ML IV SCH (19:04)
[2022-07-26] MEDS: droNABinol 2.5 MG CAP PO SCH ×4 (00:03→19:56)
[2022-07-26] MEDS: NYSTATIN SUSP 500,000 U/5 ML UDC PO SCH ×5 (00:05→19:53)
[2022-07-26] MEDS: QUEtiapine FUMARATE 25 MG TABLET PO SCH ×2 (00:06→19:56)
[2022-07-26] MEDS: DOCUSATE SODIUM 100 MG CAP PO SCH ×3 (00:07→19:56)
[2022-07-26] MEDS: ONDANSETRON INJ 2 MG/ML 2 ML VIAL IV SCH ×4 (00:07→20:03)
[2022-07-26] MEDS: APIXABAN 5 MG TABLET PO SCH ×3 (00:07→19:55)
[2022-07-26] MEDS: SUCRALFATE 1 GM/10 ML UDC PO SCH ×5 (00:08→19:53)
[2022-07-26] MEDS: guaiFENesin 600 MG TABCR PO SCH ×3 (00:09→19:54)
--- NOTE | 2022-07-26 00:09 | CT Scan Report ---
Exam(s): CT HEAD Without Contrast EXAM: CT Head Without Intravenous Contrast CLINICAL HISTORY: Reason for exam: refractory nausea; pancreatic ca; eval mets. TECHNIQUE: Axial computed tomography images of the head/brain without intravenous contrast. CTDI is 37.12 mGy and DLP is 625.8 mGy-cm. Automated exposure control was utilized for the study. A dose lowering technique was utilized adhering to the principles of ALARA. COMPARISON: Comparison made to prior brain MRI from June 27, 2022. FINDINGS: Brain: Unremarkable. No hemorrhage. Mild nonspecific white matter changes. No edema. Ventricles: Unremarkable. No ventriculomegaly. Bones/joints: Unremarkable. No acute fracture. Mild soft tissue swelling about the posterior occiput. Soft tissues: Bilateral lens replacements. Sinuses: Unremarkable as visualized. No acute sinusitis. Mastoid air cells: Unremarkable as visualized. No mastoid effusion. IMPRESSION: No evidence of acute intracranial pathology. Electronically signed by: Chelo Dailey MD 07/26/22 00:08 AM
[2022-07-26] MEDS: MELATONIN 3 MG TAB PO SCH ×2 (00:10→19:52)
[2022-07-26] MEDS: FAMOTIDINE 20 MG TAB PO SCH ×2 (00:10→19:57)
[2022-07-26] MEDS: PIPERACILLIN/TAZOBACTAM 4.5 GM in DEXTROSE 5% 100 ML IV SCH ×3 (00:18→17:17)
[2022-07-26] MEDS: HYDROmorphone INJ 0.5 MG/0.5 ML SYR IV PRN ×2 (00:47→17:24)
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
[2022-07-26 06:18] LABS: Basophils # (auto) 0.07 K/uL (0-0.2); Basophils % (auto) 0.3 %; Eosinophils # (auto) 1.29 K/uL (0-0.50); Eosinophils % (auto) 5.3 %; Hematocrit (blood only) 28.5 % (42.0-52.0); Hemoglobin 9.6 g/dl (14.0-18.0); Lymphocytes % (auto) 4.9 %; Mean Corpuscular Hemoglobin 29.5 pg (25.0-34.0); Mean Corpuscular Hgb Conc 33.7 g/dL (32.0-36.0); Mean Corpuscular Volume 87.7 fL (80.0-100.0); Mean Platelet Volume 10.3 fL (9.4-12.4); Monocytes # (auto) 1.95 K/uL (0.11-0.59); Neutrophils # (auto) 19.45 K/uL (1.40-6.50); Neutrophils % (auto) 79.5 %; Nucleated RBC # (auto) 0.05 K/uL (0-0.12); Nucleated RBC % (auto) 0.2 %; Platelet Count 145 K/uL (130-400); RDW Standard Deviation 52.7 fL (36.4-46.3); Red Blood Count 3.25 M/uL (4.70-6.10); White Blood Count 24.46 K/ul (4.8-10.8)
[2022-07-26 06:41] LABS: Albumin Globulin Ratio 0.7 (0.9-2); Albumin Level 1.9 gm/dl (3.4-5.0); BUN Creatinine Ratio 37.3 (10-20); Bilirubin,Total 3.7 mg/dl (0.2-1.0); Calcium 7.7 mg/dl (8.6-10.3); Creatinine Clr Calc Pharmacy 127.1 ml/min; Est GFR (African American) 122.7 ml/min; Est GFR (Non-African American) 105.9 ml/min; Globulin 2.6 gm/dl (2.5-4.0); Potassium 3.5 mmol/L (3.5-5.1); Total Protein 4.5 gm/dl (6.0-8.3)
[2022-07-26 06:54] LABS: INR 1.8 (0.9-1.1); Prothrombin Time 19.1 Seconds (9.0-12.0)
--- NOTE | 2022-07-26 07:22 | Magnetic Resonance Report ---
MRCP CLINICAL HISTORY: Abdominal pain/nausea, elevated bilirubin; pancr CA/mets TECHNIQUE: Utilizing a 1.5 Stephania magnet and dedicated coil, multiplanar, multiecho imaging of the [facility] er abdomen was performed utilizing heavily T2 weighted pulsing sequences without IV contrast. COMPARISON STUDY: CT of the abdomen and pelvis May 04, 2022, June 23, 2022 and July 24, 2022. FINDINGS: Moderate right and axllh-sa-sbyxinpy left pleural effusions are partially imaged. Irregular opacities within the lower lungs are present. No intra or extrahepatic biliary ductal dilatation is present. The 3-D MRCP sequence is compromised by motion artifact. Pancreatic ductal dilatation is aga in noted, due to to a pancreatic neck mass, better depicted on prior CT. This represents the primary tumor. A small amount of abdominal ascites is present. Hepatic metastatic disease has significantly p rogressed since CT of June 23, 2022. Confluent metastases replace the left hepatic lobe. A 2 cm left adrenal nodule has mildly increased in size since CT of June 23, 2022. There is no right adrenal no dule. Spleen and kidneys are unremarkable. There is no hydronephrosis. The caliber of visualized smal l and large bowel are normal. Multiple small lesions within the spine are present. These measure up t o 1.1 cm. The caliber of the abdominal aorta is normal. No fluid collection within the abdomen is pre sent. IMPRESSION: 1. Significant progression of extensive hepatic metastases since CT of June 23, 2022. 2. Redemonstration of the primary pancreatic neck mass with pancreatic ductal dilatation. No biliary ductal dilatation. 3. Moderate right and lfnrc-ee-lecyndas left pleural effusions. Lower lung irregular nodular opacitie s which may reflect metastases. An infectious process or pulmonary edema could appear similar althoug h are considered less likely. 4. Increase in size of a 2 cm left adrenal metastasis. Multiple small skeletal metastases. 5. Small amount of abdominal ascites. ACT 112: Negative or not required by law. Electronically signed by: Javy Salcedo M.D. 07/26/2022 7:19 AM
[2022-07-26] MEDS: PANCREAZE (LIPASE 10,500U) CAP PO SCH ×3 (08:00→17:19)
[2022-07-26] MEDS: CETIRIZINE HCL 10 MG TABLET PO SCH (08:05)
--- NOTE | 2022-07-26 08:27 | Electrocardiogram Report ---
Test Reason : Blood Pressure : / mmHG Vent. Rate : 077 BPM Atrial Rate : 077 BPM P-R Int : 134 ms QRS Dur : 108 ms QT Int : 406 ms P-R-T Axes : 075 035 051 degrees QTc Int : 459 ms Normal sinus rhythm Minor Non-specific intra-ventricular conduction delay Low voltage QRS Diffuse Minor Nonspecific T wave abnormality Abnormal ECG When compared with ECG of 24-JUL-2022 15:50, No significant change was found Confirmed by Gelacio Howell ([id number]) on 07/26/2022 8:27:02 AM Referred By: REFERRED SELF Confirmed By:Gelacio Howell
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
[2022-07-26] MEDS: PANTOprazole 40 MG in SYRINGE 0 ML IV SCH (12:16)
[2022-07-26] MEDS ORDERED: FUROSEMIDE INJ 20 MG/2 ML VIAL IV ONE (12:17)
--- NOTE | 2022-07-26 12:45 | Hospitalist Progress Note ---
Date of Service July 26, 2022 Assessment & Plan (1) Bilateral pneumonia: Plan: [employer] respiratory panel + for rhinovirus. Given his significant leukocytosis + elevated procal along with immunocompromised status bacterial superinfection is possible. Thus, cont zosyn; cont azithromycin. Droplet precautions for rhinovirus infection. Order tessalon pearles prn for cough. Cont mucinex BID. MRSA swab negative; will defer vancomycin coverage at this time. Continue flutter valve (2) Rhinovirus infection: Plan: [employer] panel + for such. see #1 above. (3) Pancreatic cancer metastasized to liver: Plan: severe stage 4 pancreatic cancer with extensive mets to liver, ?adrenal gland, ?lungs, etc he has done poorly with recent chemotherapy and continues to have failure to thrive with weight loss, refractory nausea, poor appetite, etc. LFTs continue to rise, and metastatic disease is progressing. while here focus on treating pneumonia, getting nausea to stop or at least be under better control, treating abd pain, and some how improving his anorexia. the anorexia will be difficult to improve given the extent of his cancer. he remains on marinol and this has not helped. continue scheduled zofran agree with heme/onc consultation. agree with palliative care consultation to refine goals of care as prognosis is very poor. (4) Abdominal pain: Plan: likely multifactorial - hepatomegaly from the liver mets & capsular stretch/swelling, gastritis, esophagitis, the primary pancreatic mass itself, etc - could all be contributing. checking MRCP to r/o CBD obstruction-shows progression of liver mets but no ductal dilation continue IV ppi, QID carafate,pepcid. dilaudid 0.25mg IV prn pain. (5) Abnormal LFTs: Plan: likely due to worsening metastatic tumor burden of liver. cannot rule out biliary obstruction given the ongoing rise of his t.bili, d.bili, and alk phos. CT a/p findings noted. Obtained MRCP - no CBD obstruction. secondary to progressive mets in liver follow CMP (6) Nausea: Plan: Refractory to multiple meds. He has had nausea for many weeks, even months. Nausea preceded the institution of chemotherapy for his advanced pancreatic ca. Differential - biliary (obstruction of CBD ruled out) vs upper GI (esophagitis, gastritis) vs infection-related (pneumonia) vs chemo-related vs combination of factors. Brain mets ruled out Suspect combination of factors. MRCP, r/o CBD obstruction/dilatation Add IV PPI. Add carafate qid. Add dilaudid 0.25mg prn for abdominal pain. Add zofran 4mg IV TID scheduled; stop scheduled reglan. Cont marinol. If all else fails could consider scheduled ativan. Could consider increasing his seroquel. Could consider aprepitant - a long-acting anti-emetic. Appreciate Palliative recommendations (7) Sepsis: Plan: 2nd to #1 above. Cont broad-spectrum IV antibiotics for now. Follow blood cultures-NGTD (8) Pleural effusion: Plan: b/l effusions. With worsening SOB today--> give lasix 20mg IV x 1 likely transudative from severe hypoalbuminemia (albumin is 1.9). can't rule out exudative effusions from cancer. pneumonia could be contributing but much less likely. (9) Oropharyngeal dysphagia: Plan: Speech consulted for swallow eval. Has severely dry mouth - we discussed ways to help this (ice chips, sucking on hard candy, Biotene, etc). Treat ?thrush with nystatin. If any esophagitis add carafate + IV PPI. (10) DVT (deep venous thrombosis): Plan: 05/2022 - RLE Doppler with - "Thrombosed superficial veins involving the greater saphenous vein and multiple varicosities of the medial knee." Remains on Eliquis BID Note - he has coagulopathy with INR of 1.8 - likely due to liver dysfunction in setting of liver infiltration from his cancer Continue Eliquis cautiously (11) Insomnia: Plan: scheduled seroquel HS scheduled melatonin HS QTc on EKG wnl (12) Acute hyponatremia: Plan: appears volume contracted on examination little to no PO intake I do not think the findings on chest CT are from volume overload - likely to be more so from low albumin he received saline boluses in the ER and IVFs again on 07/25 Na+ worse today--> could be volume overload BMP am of note - cortisol wnl, TSH normal (13) Coagulopathy: Plan: INR 1.8 this admission last INR was 1.1 in April Eliquis can cause some elevation but it is usually mild (e.g. 1.3, 1.4) suspect the main culprit is decreased synthetic function in the setting of severe metastatic disease to the liver doubt vit K deficiency (14) Severe protein-calorie malnutrition: Plan: 10kg of weight loss in <2 months he cannot tolerate regular food continue clears today to allow better tolerance in light of nausea, etc added boost breeze poor candidate for NG tube feedings for a variety of reasons poor candidate for TPN due to significantly abnormal LFTs, high risk for infection in light of recent chemotherapy and current infectious process, etc hopefully nausea/anorexia improve next 2-3 days (15) DVT prophylaxis: Plan: eliquis 5mg BID Plan daughter updated at bedside Dispo-continued stay Admission and Anticipated Discharge Date Admission Date: July 24, 2022 Subjective Had some protein shake and jello for breakfast and still feels full, not hungry for lunch. No BM in 2 days. Feels like he can't take a deep breath since late last night, had great difficulty lying flat fo rhis MRCP. Is coughing with flutter valve but no sputum production Tele with NSR, rates 70-80s Physical Exam Constitutional: WD/WN, vitals as above Eyes: + scleral abnormality (icterus) Respiratory: normal respiratory effort; not tachypneic Auscultation: + diminished lung sounds (at bases bilat); no crackles, no rhonchi and no wheezes Cardiovascular: Rate/Rhythm: regular rate and regular rhythm Heart Sounds: no murmur Extremities: + edema (trace pitting edema legs bilat) Chest (Breasts): Chest: + vascular access device or port (left anterior chest wall,no erythema) Gastrointestinal (Abdomen): Inspection/Auscultation: abdomen not distended Percussion/Palpation: + abdomen tender (epigastric region, no guarding) and abdomen soft Skin: + jaundice Psychiatric: Orientation: alert, oriented x 3 and cooperative Results & Data Results & Data Vital Signs (Past 12 Hours) Vital Signs Temp Pulse Pulse Resp BP Pulse Ox O2 Del Method 07/26/22 11:27 36.3 C L 90 18 121/74 94 Room Air 07/26/22 08:41 36.6 C 86 18 108/71 92 Room Air 07/26/22 08:18 74 07/26/22 03:15 36.5 C 76 20 99/62 L 92 Nasal Cannula O2 Flow Rate 07/26/22 11:27 07/26/22 08:41 07/26/22 08:18 07/26/22 03:15 1 Laboratory Results CBC, CMP, INR reviewed BCxs reviewed PG Care Time/CCT Total # of Minutes Spent Total Time Spent with Patient: Total time spent is greater than 50% in coordination of care (as documented) at patient's floor/unit and/or counseling patient: Coding Level of Care Code 13789 SUB INP/OBS CARE 3/50MIN Diagnoses Bilateral pneumonia J18.9 Lung location: unspecified part of lung Pneumonia type: due to unspecified organism Rhinovirus infection B34.8 Pancreatic cancer metastasized to liver C25.9; C78.7 Abdominal pain R10.9 Abnormal LFTs R79.89 Nausea R11.0 Sepsis A41.9 Sepsis acute organ dysfunction status: unspecified Sepsis type: sepsis due to unspecified organism Pleural effusion J90 Oropharyngeal dysphagia R13.12 DVT (deep venous thrombosis) I82.409 Insomnia G47.00 Acute hyponatremia E87.1 Coagulopathy D68.9 Severe protein-calorie malnutrition E43 DVT prophylaxis Z29.9 (1) Bilateral pneumonia Lung location: unspecified part of lung Pneumonia type: due to unspecified organism Qualified Code(s): J18.9 - Pneumonia, unspecified organism (7) Sepsis Sepsis acute organ dysfunction status: unspecified Sepsis type: sepsis due to unspecified organism Qualified Code(s): A41.9 - Sepsis, unspecified organism
[2022-07-26] MEDS: SENNOSIDES 8.8 MG/5 ML UDC PO SCH (13:32)
[2022-07-26] MEDS: AZITHROMYCIN 500 MG in DEXTROSE 5% 250 ML IV SCH (17:18)
[2022-07-27] MEDS: PIPERACILLIN/TAZOBACTAM 4.5 GM in DEXTROSE 5% 100 ML IV SCH ×2 (01:05→09:02)
[2022-07-27] MEDS: HYDROmorphone INJ 0.5 MG/0.5 ML SYR IV PRN ×4 (03:48→19:46)
[2022-07-27] MEDS: SUCRALFATE 1 GM/10 ML UDC PO SCH ×4 (07:59→21:17)
[2022-07-27] MEDS: CETIRIZINE HCL 10 MG TABLET PO SCH (08:00)
[2022-07-27] MEDS: ONDANSETRON INJ 2 MG/ML 2 ML VIAL IV SCH ×3 (08:00→21:17)
[2022-07-27] MEDS: NYSTATIN SUSP 500,000 U/5 ML UDC PO SCH ×4 (08:00→21:17)
[2022-07-27] MEDS: PANCREAZE (LIPASE 10,500U) CAP PO SCH ×3 (08:01→17:25)
[2022-07-27] MEDS: SENNOSIDES 8.8 MG/5 ML UDC PO SCH (08:01)
[2022-07-27] MEDS: guaiFENesin 600 MG TABCR PO SCH ×2 (08:01→21:16)
[2022-07-27] MEDS: APIXABAN 5 MG TABLET PO SCH ×2 (08:01→21:14)
[2022-07-27] MEDS: DOCUSATE SODIUM 100 MG CAP PO SCH ×2 (08:02→21:15)
[2022-07-27] MEDS: droNABinol 2.5 MG CAP PO SCH ×3 (08:33→21:11)
[2022-07-27] MEDS: ALBUT/IPRATROP 3MG/0.5MG NEB 3 ML VIAL NEB SCH ×4 (08:45→19:29)
--- NOTE | 2022-07-27 08:56 | XRay Report ---
SINGLE VIEW CHEST CLINICAL HISTORY: Dyspnea FINDINGS: An AP, portable, upright chest radiograph is compared to chest x-ray and chest CT dated 06/28. A left subclavian central venous infusion port is unchanged in position. The heart is enlarge d noting atherosclerotic calcification of the thoracic. There is pulmonary vascular congestion. Bilat eral airspace opacities have increased suggesting mild pulmonary edema. Suspected multifocal pulmonar y metastatic disease is similar to previous. There are small pleural effusions with dependent consoli dation. No pneumothorax is seen. The skeletal structures are osteopenic. The bony thorax is grossly i ntact. IMPRESSION: 1. Cardiomegaly with evidence of congestive failure. Pulmonary edema has modestly worsened as compare d to previous. 2. Small pleural effusions with dependent consolidation. 3. Suspected multifocal pulmonary metastatic disease is similar to previous. ACT 112: Negative or not required by law. Electronically signed by: Berry Martin M.D. 07/27/2022 8:55 AM
[2022-07-27] MEDS ORDERED: FUROSEMIDE INJ 20 MG/2 ML VIAL IV ONE (08:58)
[2022-07-27 09:50] LABS: Hematocrit (blood only) 27.5 % (42.0-52.0); Hemoglobin 9.5 g/dl (14.0-18.0); Mean Corpuscular Hemoglobin 29.2 pg (25.0-34.0); Mean Corpuscular Hgb Conc 34.5 g/dL (32.0-36.0); Mean Corpuscular Volume 84.6 fL (80.0-100.0); Mean Platelet Volume 11.4 fL (9.4-12.4); Nucleated RBC # (auto) 0.09 K/uL (0-0.12); Nucleated RBC % (auto) 0.3 %; Platelet Count 183 K/uL (130-400); RDW Standard Deviation 51.5 fL (36.4-46.3); Red Blood Count 3.25 M/uL (4.70-6.10); White Blood Count 27.64 K/ul (4.8-10.8)
[2022-07-27 10:02] LABS: Albumin Level 1.9 gm/dl (3.4-5.0); Bilirubin,Total 4.6 mg/dl (0.2-1.0); Calcium 7.7 mg/dl (8.6-10.3); Magnesium 1.6 mg/dl (1.7-2.4); Potassium 3.3 mmol/L (3.5-5.1)
[2022-07-27 10:08] LABS: Albumin Globulin Ratio 0.7 (0.9-2); BUN Creatinine Ratio 35.1 (10-20); Creatinine Clr Calc Pharmacy 113.7 ml/min; Est GFR (African American) 117.2 ml/min; Est GFR (Non-African American) 101.2 ml/min; Globulin 2.8 gm/dl (2.5-4.0); Total Protein 4.7 gm/dl (6.0-8.3)
[2022-07-27] MEDS ORDERED: POTASSIUM CHLORIDE CRTAB 20 MEQ TABCR PO STA (10:10)
[2022-07-27 10:11] LABS: Troponin I High Sensitivity 29.2 pg/ml (0-20)
[2022-07-27] MEDS: PANTOprazole 40 MG in SYRINGE 0 ML IV SCH (10:30)
[2022-07-27] MEDS: MAGNESIUM SULFATE / D5W 1 GM/100 ML BAG IV SCH ×2 (10:30→12:28)
[2022-07-27 10:50] LABS: Anisocytosis Present; Basophils # (auto) 0.07 K/uL (0-0.2); Basophils % (auto) 0.3 %; Echinocytes 3+; Eosinophils # (auto) 1.63 K/uL (0-0.50); Eosinophils % (auto) 5.9 %; Immature Granulocytes # (auto) 0.58 K/uL (0.01-0.20); Immature Granulocytes % (auto) 2.1 %; Lymphocytes # (auto) 1.25 K/uL (1.2-3.4); Lymphocytes % (auto) 4.5 %; Monocytes # (auto) 2.16 K/uL (0.11-0.59); Monocytes % (auto) 7.8 %; Neutrophils # (auto) 21.95 K/uL (1.40-6.50); Neutrophils % (auto) 79.4 %; Polychromasia 1+; Toxic Vacuolation 3+
[2022-07-27 10:55] LABS: Appearance Urine Clear (Clear); Bacteria Urine Automated Negative (Negative); Blood Urine 3+ (Negative); Color Urine Dark Yellow; Glucose Urine UA Negative (Negative); Ketones Urine Negative (Negative); Leukocyte Esterase Urine Trace (Negative); Nitrite Urine Positive (Negative); Protein Urine Trace (Negative); RBC Urine Automated >30 /hpf (0-4); Specific Gravity Urine 1.019 (1.000-1.030); Urobilinogen Urine Positive (Negative)
[2022-07-27 11:01] LABS: Bilirubin Urine 2+ (Negative)
--- NOTE | 2022-07-27 11:39 | Electrocardiogram Report ---
Test Reason : Blood Pressure : / mmHG Vent. Rate : 091 BPM Atrial Rate : 091 BPM P-R Int : 138 ms QRS Dur : 106 ms QT Int : 394 ms P-R-T Axes : 074 069 058 degrees QTc Int : 484 ms Normal sinus rhythm Low voltage QRS Prolonged QT Abnormal ECG When compared with ECG of 26-JUL-2022 05:57, Nonspecific T wave abnormality, improved in Inferior leads T wave inversion less evident in Anterior leads Confirmed by Gelacio Howell ([id number]) on 07/27/2022 11:39:01 AM Referred By: REFERRED SELF Confirmed By:Gelacio Howell
[2022-07-27] MEDS ORDERED: LACTULOSE SYRUP 30 GM/45 ML UDP PO STA (13:37)
[2022-07-27] MEDS ORDERED: VANCOMYCIN CONSULT ACTIVE PRN (13:37)
--- NOTE | 2022-07-27 13:39 | Hospitalist Progress Note ---
Date of Service July 27, 2022 Assessment & Plan (1) Bilateral pneumonia: Plan: BioFire respiratory panel + for rhinovirus. Given his significant leukocytosis + elevated procal along with immunocompromised status bacterial superinfection is possible. Was started on Z osyn and azithromycin Changed to cefepime and Flagyl as well as vancomycin despite negative MRSA swab today to cover for GI source and in case of resistant gram-negative pneumonia-no culture data to follow WBC count going up further Droplet precautions for rhinovirus infection. Continue tessalon pearles prn for cough. Cont mucinex BID. Continue flutter valve Give another dose of IV Lasix for pulmonary edema and shortness of breath (2) Rhinovirus infection: Plan: BioFire panel + for such. see #1 above. (3) Pancreatic cancer metastasized to liver: Plan: severe stage 4 pancreatic cancer with extensive mets to liver, ?adrenal gland, ?lungs, etc he has done poorly with recent chemotherapy and continues to have failure to thrive with weight loss, refractory nausea, poor appetite, etc. LFTs continue to rise, and metastatic disease is progressing. while here focus on treating pneumonia, getting nausea to stop or at least be under better control, treating abd pain, and some how improving his anorexia. the anorexia will be difficult to improve given the extent of his cancer. he remains on marinol and this has not helped. continue scheduled zofran agree with heme/onc consultation. agree with palliative care consultation to refine goals of care as prognosis is very poor. LFTs continue to climb but no obstruction in the bile ducts on MRCP. Pancreatic duct obstruction Consider GI consultation (4) Abdominal pain: Plan: likely multifactorial - hepatomegaly from the liver mets & capsular stretch/swelling, gastritis, esophagitis, the primary pancreatic mass itself, e tc - could all be contributing. checking MRCP to r/o CBD obstruction-shows progression of liver mets but no ductal dilation in the liver but with pancreatic ductal obstruction continue IV ppi, QID carafate,pepcid. dilaudid 0.25mg IV prn pain. (5) Abnormal LFTs: Plan: likely due to worsening metastatic tumor burden of liver. cannot rule out biliary obstruction given the ongoing rise of his t.bili, d.bili, and alk phos. CT a/p findings noted. Obtained MRCP - no CBD obstruction. secondary to progressive mets in liver follow CMP (6) Nausea: Plan: Refractory to multiple meds. He has had nausea for many weeks, even months. Nausea preceded the institution of chemotherapy for his advanced pancreatic ca. Differential - biliary (obstruction of CBD ruled out) vs upper GI (esophagitis, gastritis) vs infection-related (pneumonia) vs chemo-related vs combination of factors. Brain mets ruled out Suspect combination of factors. MRCP, r/o CBD obstruction/dilatation Add IV PPI. Add carafate qid. Add dilaudid 0.25mg prn for abdominal pain. Add zofran 4mg IV TID scheduled; stop scheduled reglan. Cont marinol. If all else fails could consider scheduled ativan. Could consider increasing his seroquel. Could consider aprepitant - a long-acting anti-emetic. Appreciate Palliative recommendations (7) Sepsis: Plan: 2nd to #1 above. Cont broad-spectrum IV antibiotics for now. Follow blood cultures-NGTD (8) Pleural effusion: Plan: b/l effusions. With worsening SOB again today--> give another dose of lasix 20mg IV x 1 likely transudative from severe hypoalbuminemia (albumin is 1.9). can't rule out exudative effusions from cancer. pneumonia could be contributing but much less likely. Start DuoNebs (9) Oropharyngeal dysphagia: Plan: Speech consulted for swallow eval. Has severely dry mouth - we discussed ways to help this (ice chips, sucking on hard candy, Biotene, etc). Treat ?thrush with nystatin. If any esophagitis add carafate + IV PPI. (10) DVT (deep venous thrombosis): Plan: 05/2022 - RLE Doppler with - "Thrombosed superficial veins involving the greater saphenous vein and multiple varicosities of the medial knee." Remains on Eliquis BID Note - he has coagulopathy with INR of 1.8 - likely due to liver dysfunction in setting of liver infiltration from his cancer Continue Eliquis cautiously (11) Insomnia: Plan: scheduled seroquel HS scheduled melatonin HS QTc on EKG wnl (12) Acute hyponatremia: Plan: Slightly worse today at 128 after receiving Lasix but is with pulmonary edema and shortness of breath Give further Lasix today With edema over extremities BMP am of note - cortisol wnl, TSH normal (13) Coagulopathy: Plan: INR 1.8 this admission last INR was 1.1 in April Eliquis can cause some elevation but it is usually mild (e.g. 1.3, 1.4) suspect the main culprit is decreased synthetic function in the setting of severe metastatic disease to the liver doubt vit K deficiency (14) Severe protein-calorie malnutrition: Plan: 10kg of weight loss in <2 months he cannot tolerate regular food continue clears today to allow better tolerance in light of nausea, etc added boost breeze poor candidate for NG tube feedings for a variety of reasons poor candidate for TPN due to significantly abnormal LFTs, high risk for infection in light of recent chemotherapy and current infectious process, etc hopefully nausea/anorexia improve next 2-3 days (15) DVT prophylaxis: Plan: eliquis 5mg BID Plan Dispo-continued stay Admission and Anticipated Discharge Date Admission Date: July 24, 2022 Subjective Patient feeling more short of breath today. No bowel movement, ate some liquid protein shake but that was it so far today. No vomiting. Feels terrible and did not sleep all night. Physical Exam Constitutional: WD/WN, vitals as above Eyes: + scleral abnormality (icterus) Respiratory: normal respiratory effort; not tachypneic Auscultation: + diminished lung sounds (at bases bilat); no crackles, no rhonchi and no wheezes Cardiovascular: Rate/Rhythm: regular rate and regular rhythm Heart Sounds: no murmur Extremities: + edema (trace pitting edema legs bilat) Chest (Breasts): Chest: + vascular access device or port (left anterior chest wall,no erythema) Gastrointestinal (Abdomen): Inspection/Auscultation: abdomen not distended Percussion/Palpation: + abdomen tender (epigastric region, no guarding) and abdomen soft Skin: + jaundice Psychiatric: Orientation: alert, oriented x 3 and cooperative Results & Data Results & Data Vital Signs (Past 12 Hours) Vital Signs Temp Pulse Pulse Resp BP Pulse Ox O2 Del Method 07/27/22 11:38 36.3 C L 99 H 19 99/62 L 92 Room Air 07/27/22 10:45 81 18 95 Room Air 07/27/22 08:50 77 07/27/22 08:46 80 18 95 Room Air 07/27/22 08:29 Room Air 07/27/22 08:27 87 16 102/67 93 Room Air 07/27/22 07:58 36.4 C L 88 16 116/71 92 Room Air 07/27/22 03:00 36.3 C L 81 17 112/69 91 Room Air Laboratory Results Labs reviewed to include CBC, BMP, urinalysis Blood cultures-no growth to date Magnesium level reviewed LFTs reviewed PG Care Time/CCT Total # of Minutes Spent Total Time Spent with Patient: Total time spent is greater than 50% in coordination of care (as documented) at patient's floor/unit and/or counseling patient: Coding Level of Care Code 73456 SUB INP/OBS CARE 3/50MIN Diagnoses Bilateral pneumonia J18.9 Lung location: unspecified part of lung Pneumonia type: due to unspecified organism Rhinovirus infection B34.8 Pancreatic cancer metastasized to liver C25.9; C78.7 Abdominal pain R10.9 Abnormal LFTs R79.89 Nausea R11.0 Sepsis A41.9 Sepsis acute organ dysfunction status: unspecified Sepsis type: sepsis due to unspecified organism Pleural effusion J90 Oropharyngeal dysphagia R13.12 DVT (deep venous thrombosis) I82.409 Insomnia G47.00 Acute hyponatremia E87.1 Coagulopathy D68.9 Severe protein-calorie malnutrition E43 DVT prophylaxis Z29.9 (1) Bilateral pneumonia Lung location: unspecified part of lung Pneumonia type: due to unspecified organism Qualified Code(s): J18.9 - Pneumonia, unspecified organism (7) Sepsis Sepsis acute organ dysfunction status: unspecified Sepsis type: sepsis due to unspecified organism Qualified Code(s): A41.9 - Sepsis, unspecified organism
[2022-07-27] MEDS ORDERED: VANCOMYCIN HCL 1,000 MG in SODIUM CHLORIDE 0.9% 250 ML IV SCH (13:45)
[2022-07-27] MEDS ORDERED: VANCOMYCIN HCL 1,500 MG in SODIUM CHLORIDE 0.9% 500 ML IV ONE (14:00)
--- NOTE | 2022-07-27 14:05 | Pharmacy Report ---
Pharmacy PK ABX Note - Date of Service July 27, 2022 - Assessment and Plan Assessment 72 year old M initially receiving vancomycin/zosyn/azithromycin 07/24 for treatment of pulmonary source. Vancomycin was discontinued on 07/25 following negative MRSA nasal swab. Patient was continued on zosyn/azithromycin. Patient has had increasing white blood cell counts, change in antibiotics today- d/c zosyn and restarting vancomycin- starting cefepime/flagyl. Last dose of azithromycin was 07/26. Blood cultures from 07/24 negative after 48 hours. +Rhiovirus on respiratory biofire. Patient with history of pancreatic cancer with mets; poorly tolerated recent chemotherapy with weight loss, nausea, etc. progressing metastatic disease. Plan Vancomycin * Loading dose: 1500 mg IV x 1 * Maintenance dose: 1250 mg IV every 12 hours * Regimen is predicted to achieve target AUC/CARLI of 400-600 mg/L.hr * Trough ordered 07/29 @1330 Pharmacy will continue to follow and will adjust dose/frequency as necessary. Thank you. Pharmacy has transitioned to AUC monitoring for vancomycin. AUC/CARLI is the preferred PK/PD target and is associated with decreased risk of nephrotoxicity compared to traditional trough targets.
[2022-07-27] MEDS: metroNIDAZOLE 500 MG/100 ML BAG IV SCH ×2 (14:49→21:17)
[2022-07-27] MEDS: CEFEPIME 2,000 MG in SYRINGE 0 ML IV SCH (17:25)
[2022-07-27] MEDS ORDERED: ALBUT/IPRATROP 3MG/0.5MG NEB 3 ML VIAL NEB PRN (20:25)
[2022-07-27] MEDS: FAMOTIDINE 20 MG TAB PO SCH (21:15)
[2022-07-27] MEDS: MELATONIN 3 MG TAB PO SCH (21:16)
[2022-07-27] MEDS: QUEtiapine FUMARATE 25 MG TABLET PO SCH (21:17)
[2022-07-28] MEDS ORDERED: hydrOXYzine HCl 25 MG TAB PO STA (00:37)
[2022-07-28] MEDS: CEFEPIME 2,000 MG in SYRINGE 0 ML IV SCH ×3 (00:45→18:23)
[2022-07-28] MEDS: HYDROmorphone INJ 0.5 MG/0.5 ML SYR IV PRN ×2 (02:31→09:17)
[2022-07-28] MEDS: VANCOMYCIN HCL 1,250 MG in SODIUM CHLORIDE 0.9% 250 ML IV SCH ×2 (02:37→14:31)
[2022-07-28] MEDS: metroNIDAZOLE 500 MG/100 ML BAG IV SCH ×3 (06:05→22:39)
--- NOTE | 2022-07-28 07:39 | Hospitalist Progress Note ---
Date of Service July 28, 2022 Assessment & Plan (1) Pancreatic cancer metastasized to liver: Plan: Unfortunately he is still significantly compromised with performance status 3/4. There is clear progression of malignancy within the liver and whether the lung represents multifocal pneumonia and/or progressive multifocal metastatic disease may become a somewhat moot point. While we have not technically completely eliminated the possibility of cautiously resuming single agent chemotherapy if there is major recovery, his poor performance status and reticence about doing so makes it extremely unlikely that that would be entertained. There remains an outside possibility that if he were to show a moderate recovery we could alternatively consider immune checkpoint chemotherapy with Keytruda though even that would have some potential concerns over the low frequency but nevertheless significant toxicities that could occur. At best, that might achieve some disease stabilization but is certainly not going to eradicate his disease and even with recovery I wonder if he is not going to lean much more towards optimizing short-term quality of life by avoiding toxic treatments and focusing instead on basic supportive care. I am even more concerned that we are not going to be able to see any fundamental improvement from his current situation given that the advancing cancer may be as much responsible for his limits to performance status as is the infection. I think that he and his are certainly technically aware of that, how much they can truly embrace that emotionally as of yet is uncertain though I think all are quite concretely aware and supportive of his own leaning towards a very conservative approach overall going forward Plan Continue with basic supportive care to assess whether he has any opportunity for improvement. That would be a necessary prerequisite for even considering additional intervention beyond supportive care though I imagine it is becoming increasingly likely that our plan going forward will be more about much more basic symptom management and preserving what quality of life we can invasive what may be unfortunately rapid progression of his underlying malignancy Admission and Anticipated Discharge Date Admission Date: July 24, 2022 Subjective Alert, still unsteady on his feet and with paroxysms of respiratory difficulty Physical Exam Physical Exam: Ill-appearing but not immediately toxic, performance status 3/4 Results & Data Results & Data Vital Signs (Past 12 Hours) Vital Signs Temp Pulse Pulse Resp BP Pulse Ox O2 Del Method 07/27/22 22:49 102 H 07/28/22 03:00 36.4 C L 93 H 20 100/66 90 Room Air 07/27/22 23:58 36.3 C L 103 H 22 102/68 91 Room Air 07/27/22 21:10 Room Air PG Care Time/CCT Total # of Minutes Spent Total Time Spent with Patient: Total time spent is greater than 50% in coordination of care (as documented) at patient's floor/unit and/or counseling patient: Coding Level of Care Code 19685 SUB INP/OBS CARE 03/23MIN Diagnoses Pancreatic cancer metastasized to liver C25.9; C78.7
--- NOTE | 2022-07-28 08:13 | Electrocardiogram Report ---
Test Reason : Blood Pressure : / mmHG Vent. Rate : 088 BPM Atrial Rate : 088 BPM P-R Int : 132 ms QRS Dur : 108 ms QT Int : 398 ms P-R-T Axes : 148 109 124 degrees QTc Int : 481 ms Suspect arm lead reversal, interpretation assumes no reversal Unusual P axis, possible ectopic atrial rhythm Rightward axis Pulmonary disease pattern Diffuse Nonspecific T wave abnormality Prolonged QT Abnormal ECG When compared with ECG of 26-JUL-2022 05:57, Arm lead reversal now present Confirmed by Gelacio Howell ([id number]) on 07/28/2022 8:13:07 AM Referred By: REFERRED SELF Confirmed By:Gelacio Howell
[2022-07-28] MEDS: SUCRALFATE 1 GM/10 ML UDC PO SCH ×4 (08:50→21:54)
[2022-07-28] MEDS: PANCREAZE (LIPASE 10,500U) CAP PO SCH ×3 (08:52→18:17)
[2022-07-28] MEDS: APIXABAN 5 MG TABLET PO SCH (08:52)
[2022-07-28] MEDS: CETIRIZINE HCL 10 MG TABLET PO SCH (08:54)
[2022-07-28] MEDS: droNABinol 2.5 MG CAP PO SCH ×3 (08:57→22:07)
[2022-07-28] MEDS: DOCUSATE SODIUM 100 MG CAP PO SCH (08:58)
[2022-07-28] MEDS: guaiFENesin 600 MG TABCR PO SCH (09:02)
[2022-07-28] MEDS: NYSTATIN SUSP 500,000 U/5 ML UDC PO SCH ×4 (09:03→21:54)
[2022-07-28] MEDS: ONDANSETRON INJ 2 MG/ML 2 ML VIAL IV SCH ×3 (09:04→21:54)
[2022-07-28] MEDS ORDERED: SODIUM CHLORIDE 0.9% 250 ML IV PRN ×3 (09:50→17:51)
[2022-07-28] MEDS: SENNOSIDES 8.8 MG/5 ML UDC PO SCH (10:14)
[2022-07-28 10:35] LABS: Basophils # (auto) 0.07 K/uL (0-0.2); Basophils % (auto) 0.3 %; Eosinophils # (auto) 1.37 K/uL (0-0.50); Eosinophils % (auto) 6.1 %; Hematocrit (blood only) 22.5 % (42.0-52.0); Hemoglobin 7.9 g/dl (14.0-18.0); Immature Granulocytes # (auto) 0.43 K/uL (0.01-0.20); Immature Granulocytes % (auto) 1.9 %; Lymphocytes # (auto) 1.44 K/uL (1.2-3.4); Lymphocytes % (auto) 6.4 %; Mean Corpuscular Hemoglobin 30.4 pg (25.0-34.0); Mean Corpuscular Hgb Conc 35.1 g/dL (32.0-36.0); Mean Corpuscular Volume 86.5 fL (80.0-100.0); Mean Platelet Volume 11.2 fL (9.4-12.4); Monocytes # (auto) 2.35 K/uL (0.11-0.59); Monocytes % (auto) 10.4 %; Neutrophils # (auto) 16.97 K/uL (1.40-6.50); Neutrophils % (auto) 74.9 %; Nucleated RBC % (auto) 0.4 %; Platelet Count 154 K/uL (130-400); RDW Standard Deviation 50.6 fL (36.4-46.3); White Blood Count 22.63 K/ul (4.8-10.8)
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
[2022-07-28 10:55] LABS: Albumin Globulin Ratio 0.7 (0.9-2); Albumin Level 1.8 gm/dl (3.4-5.0); BUN Creatinine Ratio 43.9 (10-20); Calcium 7.6 mg/dl (8.6-10.3); Creatinine Clr Calc Pharmacy 122.8 ml/min; Est GFR (African American) 117.2 ml/min; Est GFR (Non-African American) 101.2 ml/min; Globulin 2.7 gm/dl (2.5-4.0); Magnesium 1.8 mg/dl (1.7-2.4); Potassium 3.5 mmol/L (3.5-5.1); Total Protein 4.5 gm/dl (6.0-8.3)
[2022-07-28 11:01] LABS: Echinocytes 1+; Polychromasia 1+; Toxic Granulation 1+; Toxic Vacuolation 1+
--- NOTE | 2022-07-28 11:18 | Hospitalist Progress Note ---
Date of Service July 28, 2022 Assessment & Plan (1) GI bleeding: Plan: New onset on the morning of 07/28, likely upper GI bleed given dark stools and will increase Protonix to twice daily Consult GI-conservative management, no endoscopy for now given very poor prognosis overall Transfuse 2 units of PRBCs given ongoing active bleeding and with acute blood loss anemia with hemoglobin drop 7.9 Most likely will end up going comfort measures only but still with ongoing di scussions Giving Lasix in between units of PRBCs (2) Bilateral pneumonia: Plan: BioFire respiratory panel + for rhinovirus. Given his significant leukocytosis + elevated procal along with immunocompromised status bacterial superinfection is possible. Was started on Zosyn and azithromycin Changed to cefepime and Flagyl as well as vancomycin despite negative MRSA swab on 07/27 to cover for GI source and in case of resistant gram-negative pneumonia- no culture data to follow Leukocytosis slightly improved now Unclear if leukocytosis from pneumonia versus pancreatic duct obstruction and metastatic cancer Follow CBC, BMP Droplet precautions for rhinovirus infection. Continue tessalon pearles prn for cough. DC mucinex BID to reduce pill burden Continue flutter valve Give another dose of IV Lasix for pulmonary edema and shortness of breath in between units of PRBCs as above (3) Rhinovirus infection: Plan: BioFire panel + for such. see #1 above. (4) Pancreatic cancer metastasized to liver: Plan: severe stage 4 pancreatic cancer with extensive mets to liver, ?adrenal gland, ?lungs, etc he has done poorly with recent chemotherapy and continues to have failure to thrive with weight loss, refractory nausea, poor appetite, etc. LFTs continue to rise, and metastatic disease is progressing. while here focus on treating pneumonia, getting nausea to stop or at least be under better control, treating abd pain, and some how improving his anorexia. the anorexia will be difficult to improve given the extent of his cancer. he remains on marinol and this has not helped. Now with GI bleed which is very concerning and worsens prognosis continue scheduled zofran agree with heme/onc consultation. agree with palliative care consultation to refine goals of care as prognosis is very poor. LFTs continue to climb but no obstruction in the bile ducts on MRCP. Pancreatic duct obstruction GI consultation appreciated but no real intervention will be beneficial at this point (5) Abdominal pain: Plan: likely multifactorial - hepatomegaly from the liver mets & capsular stretch/swelling, gastritis, esophagitis, the primary pancreatic mass itself, etc - could all be contributing. checking MRCP to r/o CBD obstruction-shows progression of liver mets but no ductal dilation in the liver but with pancreatic ductal obstruction continue IV ppi and increase to twice daily, continue QID carafate,pepcid. Change Dilaudid to scheduled IV morphine Now with GI bleeding (6) Abnormal LFTs: Plan: likely due to worsening metastatic tumor burden of liver. cannot rule out biliary obstruction given the ongoing rise of his t.bili, d.bili, and alk phos. CT a/p findings noted. Obtained MRCP - no CBD obstruction. secondary to progressive mets in liver follow CMP (7) Nausea: Plan: Refractory to multiple meds. He has had nausea for many weeks, even months. Nausea preceded the institution of chemotherapy for his advanced pancreatic ca. Differential - biliary (obstruction of CBD ruled out) vs upper GI (esophagitis, gastritis) vs infection-related (pneumonia) vs chemo-related vs combination of factors. Brain mets ruled out Suspect combination of factors. MRCP, r/o CBD obstruction/dilatation Continue IV PPI and carafate qid. Encouraged use of lorazepam Add zofran 4mg IV TID scheduled; stop scheduled reglan. Cont marinol. Appreciate Palliative recommendations (8) Sepsis: Plan: 2nd to #1 above. Cont broad-spectrum IV antibiotics for now. Follow blood cultures-NGTD (9) Pleural effusion: Plan: b/l effusions. Not much improved with Lasix and DuoNebs, may also have shortness of breath related to anxiety likely transudative from severe hypoalbuminemia (albumin is 1.9). can't rule out exudative effusions from cancer. pneumonia could be contributing but much less likely. (10) Oropharyngeal dysphagia: Plan: Speech consulted for swallow eval. Has severely dry mouth - we discussed ways to help this (ice chips, sucking on hard candy, Biotene, etc). Treat ?thrush with nystatin. If any esophagitis add carafate + IV PPI. (11) DVT (deep venous thrombosis): Plan: 05/2022 - RLE Doppler with - "Thrombosed superficial veins involving the greater saphenous vein and multiple varicosities of the medial knee." Note - he has coagulopathy with INR of 1.8 - likely due to liver dysfunction in setting of liver infiltration from his cancer Holding Eliquis now for GI bleeding (12) Insomnia: Plan: scheduled seroquel HS scheduled melatonin HS QTc on EKG wnl (13) Acute hyponatremia: Plan: Slightly worse again today to 125 after receiving Lasix but is with pulmonary edema and shortness of breath With edema over extremities BMP am of note - cortisol wnl, TSH normal (14) Coagulopathy: Plan: INR 1.8 this admission last INR was 1.1 in April Eliquis can cause some elevation but it is usually mild (e.g. 1.3, 1.4) suspect the main culprit is decreased synthetic function in the setting of severe metastatic disease to the liver doubt vit K deficiency (15) Severe protein-calorie malnutrition: Plan: 10kg of weight loss in <2 months he cannot tolerate regular food Now n.p.o. for GI bleed added boost breeze poor candidate for NG tube feedings for a variety of reasons poor candidate for TPN due to significantly abnormal LFTs, high risk for infection in light of recent chemotherapy and current infectious process, etc (16) DVT prophylaxis: Plan: eliquis 5mg BID now on hold for GI bleed Plan Dispo-continued stay, overall very poor prognosis. Palliative medicine consultation greatly appreciated. Also appreciate oncology consultation. Looking at likely going towards comfort measures Admission and Anticipated Discharge Date Admission Date: July 24, 2022 Subjective Had dark black stool this morning and has upper abdominal pains. No nausea. He is still having his biggest complaint of not being able to sleep. Also continues to have shortness of breath and some related anxiety. Had multiple discussions with family members and palliative medicine today as well as discussed case with GI who prefers conservative management for GI bleed. Telemetry with normal sinus rhythm with rates in the 90s to 100s The patient is agreeable to blood transfusion Later in the day, went back to see the patient his family and discussed starting scheduled morphine and encouraged liberal use of lorazepam Discussed overall very poor prognosis and possibility of moving towards hospice Physical Exam Constitutional: WD/WN, vitals as above Eyes: + scleral abnormality (icterus) Respiratory: normal respiratory effort; not tachypneic Auscultation: + diminished lung sounds (at bases bilat); no crackles, no rhonchi and no wheezes Cardiovascular: Rate/Rhythm: regular rate and regular rhythm Heart Sounds: no murmur Extremities: + edema (trace pitting edema legs bilat) Chest (Breasts): Chest: + vascular access device or port (left anterior chest wall,no erythema) Gastrointestinal (Abdomen): Inspection/Auscultation: abdomen not distended Percussion/Palpation: + abdomen tender (epigastric region, no guarding) and abdomen soft Skin: + jaundice Psychiatric: Orientation: alert, oriented x 3 and cooperative Results & Data Results & Data Vital Signs (Past 12 Hours) Vital Signs Temp Pulse Pulse Resp BP Pulse Ox O2 Del Method 07/28/22 10:57 108 H 07/28/22 09:09 Room Air 07/28/22 07:54 36.3 C L 96 H 18 98/63 L 91 Room Air 07/28/22 03:00 36.4 C L 93 H 20 100/66 90 Room Air 07/27/22 23:58 36.3 C L 103 H 22 102/68 91 Room Air Laboratory Results CBC, BMP, LFTs reviewed PG Care Time/CCT Total # of Minutes Spent Total Time Spent with Patient: Total time spent is greater than 50% in coordination of care (as documented) at patient's floor/unit and/or counseling patient: Coding Level of Care Code 83437 SUB INP/OBS CARE 3/50MIN Diagnoses GI bleeding K92.2 Bilateral pneumonia J18.9 Lung location: unspecified part of lung Pneumonia type: due to unspecified organism Rhinovirus infection B34.8 Pancreatic cancer metastasized to liver C25.9; C78.7 Abdominal pain R10.9 Abnormal LFTs R79.89 Nausea R11.0 Sepsis A41.9 Sepsis acute organ dysfunction status: unspecified Sepsis type: sepsis due to unspecified organism Pleural effusion J90 Oropharyngeal dysphagia R13.12 DVT (deep venous thrombosis) I82.409 Insomnia G47.00 Acute hyponatremia E87.1 Coagulopathy D68.9 Severe protein-calorie malnutrition E43 DVT prophylaxis Z29.9 (2) Bilateral pneumonia Lung location: unspecified part of lung Pneumonia type: due to unspecified organism Qualified Code(s): J18.9 - Pneumonia, unspecified organism (8) Sepsis Sepsis acute organ dysfunction status: unspecified Sepsis type: sepsis due to unspecified organism Qualified Code(s): A41.9 - Sepsis, unspecified organism
--- NOTE | 2022-07-28 11:43 | Palliative Care Progress Note ---
Date of Service July 28, 2022 Assessment & Plan (1) Dyspnea: Plan: Denies currently. Does feel more short of breath when anxious. Monitor with transfusion. (2) Abdominal pain: Plan: Continue prn hydromorphone (3) Insomnia: Plan: He is on melatonin at . He reports having problems sleeping due to anxiety He does have order for prn lorazepam as well. (4) Palliative care encounter: Plan: I met with Mr. Pepper, his and daughter at bedside. His son also p articipated by phone. We reviewed current challenges and concern for overall poor prognosis. He tells me that everything is happening really fast and that he thought he'd have more time. He tells me that last night he decided that he was done and he just wanted to focus on quality of life. On further discussion, this seems to be in part related to anxiety and frustration about not sleeping. He does understand that treatments have not been helping him and that he is too ill and weak for additional treatment at this time. He asked multiple times what his family and I thought that he should do. We talked again about what brings quality and meaning to his life and he told me that he wants to be comfortable and enjoy time with family. They asked about transfusion and whether that would help him feel better. They would like to proceed with that but he likely does not want additional disease treatment beyond that. He is feeling overwhelmed and not able to make a definitive decision today. We did discuss code status, statistical likelihood of poor outcome and concern that he could have discomfort and harm with resuscitation. He and his family agree that he would not want resuscitation. Code status changed to DNR. Will f/u tomorrow for support and further goals of care discussion. Discussed with Dr. Adrian. Admission and Anticipated Discharge Date Admission Date: July 24, 2022 Subjective Did not sleep well last night. Had hydromorphone this morning for abdominal pain and now very drowsy. Arouses briefly and reports being comfortable. BM this morning with melena. Review of Systems Review of Systems: Unobtainable due to reduced consciousness Physical Exam Constitutional: ill appearing, drowsy Respiratory: normal respiratory effort; no labored breathing Musculoskeletal: Extremities: + muscle atrophy Skin: pale, warm, dry Neurologic: Speech / Cognition: normal cognition Results & Data Vital Signs (Past 12 Hours) Vital Signs Temp Pulse Pulse Resp BP Pulse Ox O2 Del Method 07/28/22 10:57 108 H 07/28/22 09:09 Room Air 07/28/22 07:54 97.3 F L 96 H 18 98/63 L 91 Room Air 07/28/22 03:00 97.5 F L 93 H 20 100/66 90 Room Air 07/27/22 23:58 97.3 F L 103 H 22 102/68 91 Room Air PG Care Time/CCT Total # of Minutes Spent Total Time Spent: 52 Total Time Spent with Patient: Total time spent is greater than 50% in coordination of care (as documented) at patient's floor/unit and/or counseling patient:[id number] Coding Level of Care Code 61152 SUB INP/OBS CARE 3/50MIN Diagnoses Dyspnea R06.00 Abdominal pain R10.9 Insomnia G47.00 Palliative care encounter Z51.5
[2022-07-28] MEDS: PANTOprazole 40 MG in SYRINGE 0 ML IV SCH ×2 (13:08→21:57)
[2022-07-28] MEDS ORDERED: FUROSEMIDE INJ 20 MG/2 ML VIAL IV ONE (17:51)
[2022-07-28] MEDS: MoRPHine SULFATE 2 MG/ML CARP IV SCH (21:13)
[2022-07-28] MEDS: LORazepam 1 MG TAB SL SCH (21:54)
[2022-07-28] MEDS: FAMOTIDINE 20 MG TAB PO SCH (22:07)
[2022-07-28] MEDS: QUEtiapine FUMARATE 25 MG TABLET PO SCH (22:07)
[2022-07-29] MEDS: MoRPHine SULFATE 2 MG/ML CARP IV SCH ×4 (00:24→13:57)
[2022-07-29] MEDS ORDERED: LACTATED RINGER'S 1,000 ML IV SCH (00:30)
[2022-07-29] MEDS: CEFEPIME 2,000 MG in SYRINGE 0 ML IV SCH ×2 (00:55→09:51)
[2022-07-29 01:24] LABS: Hematocrit (blood only) 29.3 % (42.0-52.0); Hemoglobin 10.4 g/dl (14.0-18.0); Mean Corpuscular Hemoglobin 30.7 pg (25.0-34.0); Mean Corpuscular Hgb Conc 35.5 g/dL (32.0-36.0); Mean Corpuscular Volume 86.4 fL (80.0-100.0); Mean Platelet Volume 10.8 fL (9.4-12.4); Nucleated RBC # (auto) 0.16 K/uL (0-0.12); Nucleated RBC % (auto) 0.7 %; Platelet Count 177 K/uL (130-400); RDW Coefficient of Variation 17.6 % (11.5-14.5); RDW Standard Deviation 49.1 fL (36.4-46.3); Red Blood Count 3.39 M/uL (4.70-6.10); White Blood Count 23.99 K/ul (4.8-10.8)
[2022-07-29 01:34] LABS: BUN Creatinine Ratio 47.8 (10-20); Calcium 7.5 mg/dl (8.6-10.3); Creatinine Clr Calc Pharmacy 101.5 ml/min; Est GFR (African American) 108.4 ml/min; Est GFR (Non-African American) 93.5 ml/min; Potassium 3.7 mmol/L (3.5-5.1)
[2022-07-29] MEDS: VANCOMYCIN HCL 1,250 MG in SODIUM CHLORIDE 0.9% 250 ML IV SCH (02:21)
[2022-07-29 05:24] LABS: Hematocrit (blood only) 26.5 % (42.0-52.0); Hemoglobin 9.7 g/dl (14.0-18.0); Mean Corpuscular Hemoglobin 30.5 pg (25.0-34.0); Mean Corpuscular Hgb Conc 36.6 g/dL (32.0-36.0); Mean Corpuscular Volume 83.3 fL (80.0-100.0); Mean Platelet Volume 11.7 fL (9.4-12.4); Nucleated RBC # (auto) 0.18 K/uL (0-0.12); Nucleated RBC % (auto) 0.7 %; Platelet Count 147 K/uL (130-400); RDW Coefficient of Variation 17.5 % (11.5-14.5); RDW Standard Deviation 47.9 fL (36.4-46.3); Red Blood Count 3.18 M/uL (4.70-6.10)
[2022-07-29 05:56] LABS: Albumin Globulin Ratio 0.7 (0.9-2); Albumin Level 1.7 gm/dl (3.4-5.0); BUN Creatinine Ratio 53.1 (10-20); Calcium 7.5 mg/dl (8.6-10.3); Creatinine Clr Calc Pharmacy 109.5 ml/min; Est GFR (African American) 111.8 ml/min; Est GFR (Non-African American) 96.5 ml/min; Globulin 2.4 gm/dl (2.5-4.0); Magnesium 1.7 mg/dl (1.7-2.4); Potassium 3.6 mmol/L (3.5-5.1); Total Protein 4.1 gm/dl (6.0-8.3)
[2022-07-29] MEDS: metroNIDAZOLE 500 MG/100 ML BAG IV SCH (06:25)
[2022-07-29 07:11] LABS: Basophils # (auto) 0.09 K/uL (0-0.2); Basophils % (auto) 0.3 %; Echinocytes 1+; Eosinophils # (auto) 2.06 K/uL (0-0.50); Eosinophils % (auto) 7.9 %; Immature Granulocytes # (auto) 0.98 K/uL (0.01-0.20); Immature Granulocytes % (auto) 3.7 %; Lymphocytes # (auto) 1.67 K/uL (1.2-3.4); Lymphocytes % (auto) 6.4 %; Monocytes # (auto) 3.02 K/uL (0.11-0.59); Monocytes % (auto) 11.5 %; Neutrophils # (auto) 18.38 K/uL (1.40-6.50); Neutrophils % (auto) 70.2 %; Toxic Vacuolation 1+
[2022-07-29] MEDS: SUCRALFATE 1 GM/10 ML UDC PO SCH ×2 (08:17→12:00)
[2022-07-29] MEDS: PANCREAZE (LIPASE 10,500U) CAP PO SCH ×2 (08:18→12:00)
[2022-07-29] MEDS: CETIRIZINE HCL 10 MG TABLET PO SCH (09:20)
[2022-07-29] MEDS: NYSTATIN SUSP 500,000 U/5 ML UDC PO SCH ×4 (09:21→20:17)
[2022-07-29] MEDS: droNABinol 2.5 MG CAP PO SCH (09:21)
[2022-07-29] MEDS: PANTOprazole 40 MG in SYRINGE 0 ML IV SCH ×2 (09:51→20:56)
[2022-07-29] MEDS: ONDANSETRON INJ 2 MG/ML 2 ML VIAL IV SCH ×3 (09:51→20:55)
--- NOTE | 2022-07-29 13:22 | Hospitalist Progress Note ---
Date of Service July 29, 2022 Assessment & Plan (1) Comfort measures only status: Plan: Given metastatic pancreatic cancer, failure to thrive, severe protein calorie malnutrition, abdominal pain, Rhinovirus infection with pneumonia, worsening liver dysfunction, and now acute GI bleed, with poor functional status to continue on with any further chemotherapy, Mr. Pepper will now transition to comfort measures only. -start morphine gtt -lorazepam as needed and scheduled hs -dc all abx, IVFs, blood draws -transfer off tele Appreciate Palliative Medicine management (2) GI bleeding: Plan: New onset on the morning of 07/28, likely upper GI bleed given dark stools and then transitioned to multiple maroon and BRBPR stools overnight and into 07/29 Transfused 2 units PRBCS fo rhgb drop down to 7.9 and ongoing hemorrhage Seen by GI and too frail for scopes, plus transitioning to CLINIC PHYSICIAN DIRECTOR. Not likely amenable to any definitive treatment Continue Protonix twice daily no further labs draws or transfusions now as transitioning to CLINIC PHYSICIAN DIRECTOR (3) Bilateral pneumonia: Plan: BioFire respiratory panel + for rhinovirus. Given his significant leukocytosis + elevated procal along with immunocompromised status bacterial superinfection is possible. Was started on Zosyn and azithromycin Changed to cefepime and Flagyl as well as vancomycin despite negative MRSA swab on 07/27 to cover for GI source and in case of resistant gram-negative pneumonia- no culture data to follow Leukocytosis not much improved Unclear if leukocytosis from pneumonia versus pancreatic duct obstruction and metastatic cancer Dc all antibiotics now transitioning to CLINIC PHYSICIAN DIRECTOR (4) Rhinovirus infection: Plan: BioFire panel + for such. (5) Pancreatic cancer metastasized to liver: Plan: severe stage 4 pancreatic cancer with extensive mets to liver, adrenal gland, lungs, bone he has done poorly with recent chemotherapy and continues to have failure to thrive with weight loss, refractory nausea, poor appetite, etc. LFTs continue to rise, and metastatic disease is progressing. Appreciate heme/onc and Palliative consultations Very poor prognosis, cannot tolerate further chemotherapy Transition to CLINIC PHYSICIAN DIRECTOR (6) Abdominal pain: Plan: likely multifactorial - hepatomegaly from the liver mets & capsular stretch/swelling, gastritis, esophagitis, the primary pancreatic mass itself, etc - could all be contributing. checking MRCP to r/o CBD obstruction-shows progression of liver mets but no ductal dilation in the liver but with pancreatic ductal obstruction continue IV ppi twice daily, continue QID carafate,pepcid. Now with GI bleeding Starting morphine gtt (7) Abnormal LFTs: Plan: due to worsening metastatic tumor burden of liver. cannot rule out biliary obstruction given the ongoing rise of his t.bili, d.bili, and alk phos. CT a/p findings noted. Obtained MRCP - no CBD obstruction. secondary to progressive mets in liver (8) Nausea: Plan: Refractory to multiple meds. He has had nausea for many weeks, even months. Nausea preceded the institution of chemotherapy for his advanced pancreatic ca. Differential - biliary (obstruction of CBD ruled out) vs upper GI (esophagitis, gastritis) vs infection-related (pneumonia) vs chemo-related vs combination of factors. Brain mets ruled out Suspect combination of factors. MRCP, r/o CBD obstruction/dilatation Continue IV PPI but dc carafate qid. Encouraged use of lorazepam Continue zofran 4mg IV TID scheduled dc marinol (9) Pleural effusion: Plan: b/l effusions. Not much improved with Lasix and DuoNebs, may also have shortness of breath related to anxiety likely transudative from severe hypoalbuminemia (albumin is 1.9). can't rule out exudative effusions from cancer. pneumonia could be contributing but much less likely. morphine gtt for dyspnea (10) DVT (deep venous thrombosis): Plan: 05/2022 - RLE Doppler with - "Thrombosed superficial veins involving the greater saphenous vein and multiple varicosities of the medial knee." He has coagulopathy with INR of 1.8 - likely due to liver dysfunction in setting of liver infiltration from his cancer dc Eliquis now for GI bleeding (11) Insomnia: Plan: dc seroquel HS and dc melatonin HS (12) Acute hyponatremia: Plan: continues to worsen to 124 likely intravascularly depleted but is hypervolemic due to third spacing, hypoalbuminemia cortisol wnl, TSH normal no further lab draws (13) Coagulopathy: Plan: INR 1.8 this admission last INR was 1.1 in April Eliquis can cause some elevation but it is usually mild (e.g. 1.3, 1.4) suspect the main culprit is decreased synthetic function in the setting of severe metastatic disease to the liver doubt vit K deficiency (14) Severe protein-calorie malnutrition: Plan: 10kg of weight loss in <2 months he cannot tolerate regular food , was barely eating liquids/clears poor candidate for NG tube feedings for a variety of reasons poor candidate for TPN due to significantly abnormal LFTs, high risk for infection in light of recent chemotherapy and current infectious process, etc transitioning to CLINIC PHYSICIAN DIRECTOR (15) DVT prophylaxis: Plan: eliquis 5mg BID now stopped for GI bleed Plan Dispo-transition to CLINIC PHYSICIAN DIRECTOR, transfer off tele to med/surg Admission and Anticipated Discharge Date Admission Date: July 24, 2022 Subjective Had multiple bloody stools through the night and again mid morning.He is drowsy when I saw him and does admit to pain in the upper abdomen. I discussed his care with Palliative Med. Family meeting was held w/ Palliative and decision made to transition to CLINIC PHYSICIAN DIRECTOR. Tele with NSR and ST with rates 90-100s Physical Exam Constitutional: WD/WN, vitals as above Eyes: + scleral abnormality (icterus) Respiratory: Auscultation: + diminished lung sounds (at bases bilat); no crackles, no rhonchi and no wheezes Cardiovascular: Rate/Rhythm: regular rhythm and + tachycardic Heart Sounds: no murmur Extremities: + edema (trace pitting edema legs bilat) Chest (Breasts): Chest: + vascular access device or port (left anterior chest wall,no erythema) Gastrointestinal (Abdomen): Inspection/Auscultation: abdomen not distended Percussion/Palpation: + abdomen tender (epigastric region, no guarding) and abdomen soft Skin: + jaundice Psychiatric: Orientation: + not alert (drowsy) Results & Data Results & Data Vital Signs (Past 12 Hours) Vital Signs Temp Pulse Pulse Resp BP Pulse Ox O2 Del Method 07/29/22 08:00 Nasal Cannula 07/29/22 08:00 88 07/29/22 11:39 36.3 C L 98 H 18 113/73 94 Nasal Cannula 07/29/22 07:13 36.4 C L 100 H 18 93/59 L 94 Nasal Cannula 07/29/22 06:29 106/72 07/29/22 02:15 110/74 07/29/22 03:11 36.3 C L 99 H 16 93 Nasal Cannula O2 Flow Rate 07/29/22 08:00 2 07/29/22 08:00 07/29/22 11:39 2 07/29/22 07:13 2 07/29/22 06:29 07/29/22 02:15 07/29/22 03:11 2 Laboratory Results CBC, CMP, magnesium reviewed PG Care Time/CCT Total # of Minutes Spent Total Time Spent with Patient: Total time spent is greater than 50% in coordination of care (as documented) at patient's floor/unit and/or counseling patient: Coding Level of Care Code 89333 SUB INP/OBS CARE 2/35MIN Diagnoses Comfort measures only status Z51.5 GI bleeding K92.2 Bilateral pneumonia J18.9 Lung location: unspecified part of lung Pneumonia type: due to unspecified organism Rhinovirus infection B34.8 Pancreatic cancer metastasized to liver C25.9; C78.7 Abdominal pain R10.9 Abnormal LFTs R79.89 Nausea R11.0 Pleural effusion J90 DVT (deep venous thrombosis) I82.409 Insomnia G47.00 Acute hyponatremia E87.1 Coagulopathy D68.9 Severe protein-calorie malnutrition E43 DVT prophylaxis Z29.9 (3) Bilateral pneumonia Lung location: unspecified part of lung Pneumonia type: due to unspecified organism Qualified Code(s): J18.9 - Pneumonia, unspecified organism
[2022-07-29] MEDS ORDERED: MoRPHine BOLUS from BAG IV PRN (13:37)
[2022-07-29] MEDS ORDERED: LORazepam 2 MG/1 ML VIAL IV PRN (13:37)
[2022-07-29] MEDS ORDERED: GLYCOPYRROLATE 0.2 MG/ML VIAL IV PRN (13:37)
[2022-07-29] MEDS ORDERED: ONDANSETRON INJ 2 MG/ML 2 ML VIAL IV PRN (13:37)
--- NOTE | 2022-07-29 13:37 | Palliative Care Progress Note ---
Date of Service July 29, 2022 Assessment & Plan (1) Abdominal pain: Plan: With pancreatic cancer, hepatic failure, GI bleeding Continues to complain of upper abdominal pain with routine morphine dosing Discussed with family. Will start morphine infusion for more effective pain control (2) Insomnia: Plan: With significant anxiety Continue lorazepam at hs and as needed (3) Dyspnea: Plan: With pneumonia Monitor with morphine infusion On O2 at 2L (4) Palliative care encounter: Plan: I talked with Kd about concern that he is nearing his dying time. He told me that he doesn't feel like he had enough time. We talked about focusing on his comfort so that he can better enjoy his time with his family. I also met with his , son and daughter who understand that his prognosis is poor. They are all in agreement with focus of care on comfort and symptom management rather than disease management. Discussed adjustment of medications with this in mind. Discussed what to expect. Answered their questions about how to help his grandchildren cope with his illness and . Given initiation of morphine infusion and unstable prognosis with GI bleeding, would prefer not to take him home with hospice at this time. Discussed with Dr. Adrian and Dr. Perez. Admission and Anticipated Discharge Date Admission Date: July 24, 2022 Subjective Continues to have bloody stools. Increased abdominal pain. Difficulty swallowing po meds. Review of Systems Review of Systems: ESAS Pain 2/3 Dyspnea 1/3 Nausea 0/3 Drowsiness 2/3 Anxiety 2/3 Physical Exam Constitutional: + ill appearing; + uncomfortable Respiratory: + uses accessory muscles; no respiratory distress Cardiovascular: Rate/Rhythm: regular rate and regular rhythm Skin: pale, warm, dry Results & Data Vital Signs (Past 12 Hours) Vital Signs Temp Pulse Pulse Resp BP Pulse Ox O2 Del Method 07/29/22 08:00 Nasal Cannula 07/29/22 08:00 88 07/29/22 11:39 97.3 F L 98 H 18 113/73 94 Nasal Cannula 07/29/22 07:13 97.5 F L 100 H 18 93/59 L 94 Nasal Cannula 07/29/22 06:29 106/72 07/29/22 02:15 110/74 07/29/22 03:11 97.3 F L 99 H 16 93 Nasal Cannula O2 Flow Rate 07/29/22 08:00 2 07/29/22 08:00 07/29/22 11:39 2 07/29/22 07:13 2 07/29/22 06:29 07/29/22 02:15 07/29/22 03:11 2 PG Care Time/CCT Total # of Minutes Spent Total Time Spent with Patient: Total time spent is greater than 50% in coordination of care (as documented) at patient's floor/unit and/or counseling patient: Coding Level of Care Code 18223 SUB INP/OBS CARE 3/50MIN Diagnoses Abdominal pain R10.9 Insomnia G47.00 Dyspnea R06.00 Palliative care encounter Z51.5
[2022-07-29] MEDS ORDERED: MoRPHine SULF/NSS 250 MG/250 ML BTL IV SCH (13:45)
[2022-07-29] MEDS ORDERED: MoRPHine SULFATE 2 MG/ML CARP ONE (13:49)
[2022-07-29] MEDS: LORazepam 1 MG TAB SL SCH (20:17)
--- NOTE | 2022-07-30 09:05 | Hospitalist Progress Note ---
Date of Service July 29, 2022 Assessment & Plan (1) Pancreatic cancer metastasized to liver: Plan: I have spoken at length with the patient on several previous visits earlier this week and while he was asleep through the visit today, I did have an opportunity to speak at length with his daughter, son-in-law, and . Unfortunately, we note that his performance status remains very poor (ECOG 4) and he now has ongoing respiratory compromise, GI bleeding, and overall severe weakness. He would not tolerate further cytotoxic's. Although there might be some theoretical response to immune checkpoint hypnotherapy, that can have dramatic liver/GI/pulmonary toxicity and the likelihood of a dramatic consistent response even in someone with elevated better performance status might not be significant. With his body overwhelmed by the effects of the disease itself f urther exacerbated by his current viral infection, I do not see any realistic prospects of significant recovery or improvement. I have definitively indicated that we cannot offer any further oncology specific treatment and we will have to focus on what we can do in terms of symptom management Only with the start of morphine has he been able to be consistently comfortable. That has been his primary wish and is probably the only meaningful thing we can offer him going forward. The family has considered at length and do not feel that there is utility to him or them and trying to bring him on hospice and his current condition. He is meeting with palliative care immediately after our meeting to further discuss the parameters of care and its optimal location. Plan There is nothing further from a specific oncology standpoint we have to offer them to endorse the central focus of palliative transitioning to hospice like care though the practicality will probably be to do so within the hospital or at least another nursing facility environment. Admission and Anticipated Discharge Date Admission Date: July 24, 2022 Subjective Patient was sleeping comfortably at the time of my visit at 12:30 PM on 07/29/2022. His family indicates that he has been much more comfortable since the start of morphine Physical Exam Physical Exam: Resting comfortably Results & Data Results & Data Vital Signs (Past 12 Hours) Vital Signs Temp Pulse Resp BP Pulse Ox O2 Del Method O2 Flow Rate 07/30/22 08:02 36.4 C L 105 H 16 98/66 L 92 Nasal Cannula 2.5 07/29/22 23:35 Nasal Cannula 2 PG Care Time/CCT Total # of Minutes Spent Total Time Spent with Patient: Total time spent is greater than 50% in coordination of care (as documented) at patient's floor/unit and/or counseling patient: Coding Level of Care Code 96558 SUB INP/OBS CARE Diagnoses Pancreatic cancer metastasized to liver C25.9; C78.7 Comment This is documentation of the visit that occurred on July 29 at 1230p
[2022-07-30] MEDS: ONDANSETRON INJ 2 MG/ML 2 ML VIAL IV SCH ×3 (10:32→21:26)
[2022-07-30] MEDS: PANTOprazole 40 MG in SYRINGE 0 ML IV SCH ×2 (10:32→21:26)
--- NOTE | 2022-07-30 12:46 | Hospitalist Progress Note ---
Date of Service July 30, 2022 Assessment & Plan (1) Comfort measures only status: Plan: Given metastatic pancreatic cancer, failure to thrive, severe protein calorie malnutrition, abdominal pain, Rhinovirus infection with pneumonia, worsening liver dysfunction, and now acute GI bleed, with poor functional status to continue on with any further chemotherapy, Mr. Pepper has transitioned to comfort measures only on 07/29 Is much more comfortable on morphine gtt -continue morphine gtt -lorazepam as needed and scheduled hs -dcd all abx, IVFs, blood draws -condom catheter in place Appreciate Palliative Medicine management (2) GI bleeding: Plan: New onset on the morning of 07/28, likely upper GI bleed given dark stools and then transitioned to multiple maroon and BRBPR stools overnight and into 07/29 Transfused 2 units PRBCS fo rhgb drop down to 7.9 and ongoing hemorrhage Seen by GI and too frail for scopes, plus transitioning to LOSS PREVENTION ASSOCIATE. Not likely amenable to any definitive treatment Continue Protonix twice daily for one more day no further labs draws or transfusions now as transitioned to LOSS PREVENTION ASSOCIATE (3) Bilateral pneumonia: Plan: [employer] respiratory panel + for rhinovirus. Given his significant leukocytosis + elevated procal along with immunocompromised status bacterial superinfection is possible. Was started on Zosyn and azithromycin Changed to cefepime and Flagyl as well as vancomycin despite negative MRSA swab on 07/27 to cover for GI source and in case of resistant gram-negative pneumonia- no culture data to follow Leukocytosis not much improved Unclear if leukocytosis from pneumonia versus pancreatic duct obstruction and metastatic cancer Dcd all antibiotics after transitioning to LOSS PREVENTION ASSOCIATE (4) Rhinovirus infection: Plan: [employer] panel + for such. (5) Pancreatic cancer metastasized to liver: Plan: severe stage 4 pancreatic cancer with extensive mets to liver, adrenal gland, lungs, bone he has done poorly with recent chemotherapy and continues to have failure to thrive with weight loss, refractory nausea, poor appetite, etc. LFTs continue to rise, and metastatic disease is progressing. Appreciate heme/onc and Palliative consultations Very poor prognosis, cannot tolerate further chemotherapy Transitioned to LOSS PREVENTION ASSOCIATE (6) Abdominal pain: Plan: likely multifactorial - hepatomegaly from the liver mets & capsular stretch/swelling, gastritis, esophagitis, the primary pancreatic mass itself, etc - could all be contributing. checking MRCP to r/o CBD obstruction-shows progression of liver mets but no d uctal dilation in the liver but with pancreatic ductal obstruction continue IV ppi twice daily x 1 more day Now with GI bleeding ongoing Started morphine gtt (7) Abnormal LFTs: Plan: due to worsening metastatic tumor burden of liver. cannot rule out biliary obstruction given the ongoing rise of his t.bili, d.bili, and alk phos. CT a/p findings noted. Obtained MRCP - no CBD obstruction. secondary to progressive mets in liver (8) Nausea: Plan: Refractory to multiple meds. He has had nausea for many weeks, even months. Nausea preceded the institution of chemotherapy for his advanced pancreatic ca. Differential - biliary (obstruction of CBD ruled out) vs upper GI (esophagitis, gastritis) vs infection-related (pneumonia) vs chemo-related vs combination of factors. Brain mets ruled out Suspect combination of factors. MRCP, r/o CBD obstruction/dilatation Continue IV PPI Encouraged use of lorazepam Continue zofran 4mg IV TID scheduled dcd marinol (9) Pleural effusion: Plan: b/l effusions. Not much improved with Lasix and DuoNebs, may also have shortness of breath related to anxiety likely transudative from severe hypoalbuminemia (albumin is 1.9). can't rule out exudative effusions from cancer. pneumonia could be contributing but much less likely. morphine gtt for dyspnea (10) DVT (deep venous thrombosis): Plan: 05/2022 - RLE Doppler with - "Thrombosed superficial veins involving the greater saphenous vein and multiple varicosities of the medial knee." He has coagulopathy with INR of 1.8 - likely due to liver dysfunction in setting of liver infiltration from his cancer dc Eliquis now for GI bleeding (11) Insomnia: Plan: dcd seroquel HS and dcd melatonin HS using lorazepam (12) Acute hyponatremia: Plan: continued to worsen to 124 likely intravascularly depleted but is hypervolemic due to third spacing, hypoalbuminemia cortisol wnl, TSH normal no further lab draws (13) Coagulopathy: Plan: INR 1.8 this admission last INR was 1.1 in April Eliquis can cause some elevation but it is usually mild (e.g. 1.3, 1.4) suspect the main culprit is decreased synthetic function in the setting of severe metastatic disease to the liver doubt vit K deficiency (14) Severe protein-calorie malnutrition: Plan: 10kg of weight loss in <2 months he cannot tolerate regular food , was barely eating liquids/clears poor candidate for NG tube feedings for a variety of reasons poor candidate for TPN due to significantly abnormal LFTs, high risk for infection in light of recent chemotherapy and current infectious process, etc transitioned to LOSS PREVENTION ASSOCIATE (15) DVT prophylaxis: Plan: eliquis 5mg BID now stopped for GI bleed Plan Dispo-on LOSS PREVENTION ASSOCIATE, remains on med/surg, expect to pass away likely within 5-7 days Family given support at bedside Admission and Anticipated Discharge Date Admission Date: July 24, 2022 Subjective Pt resting comfortably on morphine gtt. Had another darker stool this AM. Family at bedside reports he did wake up and say hello earlier but resting since then. Physical Exam Constitutional: WD/WN, vitals as above Respiratory: normal respiratory effort; not tachypneic Auscultation: no crackles, no rhonchi and no wheezes Cardiovascular: Rate/Rhythm: regular rhythm and + tachycardic Heart Sounds: no murmur Extremities: + edema (trace pitting edema legs bilat) Chest (Breasts): Chest: + vascular access device or port (left anterior chest wall,no erythema) Skin: + jaundice Psychiatric: Orientation: + not alert (drowsy) Results & Data Results & Data Vital Signs (Past 12 Hours) Vital Signs Temp Pulse Resp BP Pulse Ox O2 Del Method O2 Flow Rate 07/30/22 11:13 Room Air 07/30/22 08:02 36.4 C L 105 H 16 98/66 L 92 Nasal Cannula 2.5 PG Care Time/CCT Total # of Minutes Spent Total Time Spent with Patient: Total time spent is greater than 50% in coordination of care (as documented) at patient's floor/unit and/or counseling patient: Coding Level of Care Code 32330 SUB INP/OBS CARE 25MIN Diagnoses Comfort measures only status Z51.5 GI bleeding K92.2 Bilateral pneumonia J18.9 Lung location: unspecified part of lung Pneumonia type: due to unspecified organism Rhinovirus infection B34.8 Pancreatic cancer metastasized to liver C25.9; C78.7 Abdominal pain R10.9 Abnormal LFTs R79.89 Nausea R11.0 Pleural effusion J90 DVT (deep venous thrombosis) I82.409 Insomnia G47.00 Acute hyponatremia E87.1 Coagulopathy D68.9 Severe protein-calorie malnutrition E43 DVT prophylaxis Z29.9 (3) Bilateral pneumonia Lung location: unspecified part of lung Pneumonia type: due to unspecified organism Qualified Code(s): J18.9 - Pneumonia, unspecified organism
[2022-07-30] MEDS: LORazepam 1 MG TAB SL SCH (21:26)
[2022-07-31] MEDS: ONDANSETRON INJ 2 MG/ML 2 ML VIAL IV SCH ×3 (10:15→20:16)
[2022-07-31] MEDS: PANTOprazole 40 MG in SYRINGE 0 ML IV SCH (10:15)
--- NOTE | 2022-07-31 17:45 | Hospitalist Progress Note ---
Date of Service July 31, 2022 Assessment & Plan (1) Comfort measures only status: Plan: Given metastatic pancreatic cancer, failure to thrive, severe protein calorie malnutrition, abdominal pain, Rhinovirus infection with pneumonia, worsening liver dysfunction, and now acute GI bleed, with poor functional status to continue on with any further chemotherapy, Mr. Pepper has transitioned to comfort measures only on 07/29 Is much more comfortable on morphine gtt -continue morphine gtt -lorazepam as needed and scheduled hs -robinul prn secretions-will have RN give dose now -dcd all abx, IVFs, blood draws -condom catheter in place Appreciate Palliative Medicine management (2) GI bleeding: Plan: New onset on the morning of 07/28, likely upper GI bleed given dark stools and then transitioned to multiple maroon and BRBPR stools overnight and into 07/29 Transfused 2 units PRBCS fo rhgb drop down to 7.9 and ongoing hemorrhage Seen by GI and too frail for scopes, plus transitioning to WILL CALL CLERK. Not likely amenable to any definitive treatment continues to have melena daily but no further bright red blood so bleed likely stopped received Protonix twice daily x 3 days, now will stop no further labs draws or transfusions now as transitioned to WILL CALL CLERK (3) Bilateral pneumonia: Plan: [employer] respiratory panel + for rhinovirus. Given his significant leukocytosis + elevated procal along with immunocompromised status bacterial superinfection is possible. Was started on Zosyn and azithromycin Changed to cefepime and Flagyl as well as vancomycin despite negative MRSA swab on 07/27 to cover for GI source and in case of resistant gram-negative pneumonia- no culture data to follow Leukocytosis not much improved Unclear if leukocytosis from pneumonia versus pancreatic duct obstruction and metastatic cancer Dcd all antibiotics after transitioning to WILL CALL CLERK (4) Rhinovirus infection: Plan: [employer] panel + for such. (5) Pancreatic cancer metastasized to liver: Plan: severe stage 4 pancreatic cancer with extensive mets to liver, adrenal gland, lungs, bone he has done poorly with recent chemotherapy and continues to have failure to thrive with weight loss, refractory nausea, poor appetite, etc. LFTs continue to rise, and metastatic disease is progressing. Appreciate heme/onc and Palliative consultations Very poor prognosis, cannot tolerate further chemotherapy Transitioned to WILL CALL CLERK (6) Abdominal pain: Plan: likely multifactorial - hepatomegaly from the liver mets & capsular stretch/swelling, gastritis, esophagitis, the primary pancreatic mass itself, etc - could all be contributing. checking MRCP to r/o CBD obstruction-shows progression of liver mets but no ductal dilation in the liver but with pancreatic ductal obstruction received IV ppi twice daily x 3 days-now stopped Now with GI bleeding ongoing Started morphine gtt (7) Abnormal LFTs: Plan: due to worsening metastatic tumor burden of liver. cannot rule out biliary obstruction given the ongoing rise of his t.bili, d.bili, and alk phos. CT a/p findings noted. Obtained MRCP - no CBD obstruction. secondary to progressive mets in liver (8) Nausea: Plan: Refractory to multiple meds. He has had nausea for many weeks, even months. Nausea preceded the institution of chemotherapy for his advanced pancreatic ca. Differential - biliary (obstruction of CBD ruled out) vs upper GI (esophagitis, gastritis) vs infection-related (pneumonia) vs chemo-related vs combination of factors. Brain mets ruled out Suspect combination of factors. MRCP, r/o CBD obstruction/dilatation IV PPI given lorazepam prn Continue zofran 4mg IV TID scheduled dcd marinol (9) Pleural effusion: Plan: b/l effusions. Not much improved with Lasix and DuoNebs, may also have shortness of breath related to anxiety likely transudative from severe hypoalbuminemia (albumin is 1.9). can't rule out exudative effusions from cancer. pneumonia could be contributing but much less likely. morphine gtt for dyspnea (10) DVT (deep venous thrombosis): Plan: 05/2022 - RLE Doppler with - "Thrombosed superficial veins involving the greater saphenous vein and multiple varicosities of the medial knee." He has coagulopathy with INR of 1.8 - likely due to liver dysfunction in setting of liver infiltration from his cancer dc Eliquis for GI bleeding (11) Insomnia: Plan: dcd seroquel HS and dcd melatonin HS using lorazepam (12) Acute hyponatremia: Plan: continued to worsen to 124 likely intravascularly depleted but is hypervolemic due to third spacing, hyp oalbuminemia cortisol wnl, TSH normal no further lab draws (13) Coagulopathy: Plan: INR 1.8 this admission last INR was 1.1 in April Eliquis can cause some elevation but it is usually mild (e.g. 1.3, 1.4) suspect the main culprit is decreased synthetic function in the setting of severe metastatic disease to the liver doubt vit K deficiency (14) Severe protein-calorie malnutrition: Plan: 10kg of weight loss in <2 months he cannot tolerate regular food , was barely eating liquids/clears poor candidate for NG tube feedings for a variety of reasons poor candidate for TPN due to significantly abnormal LFTs, high risk for infection in light of recent chemotherapy and current infectious process, etc transitioned to WILL CALL CLERK (15) DVT prophylaxis: Plan: eliquis 5mg BID now stopped for GI bleed Plan Dispo-on WILL CALL CLERK, remains on med/surg, more obtunded on evening of 07/31, expect to pass away likely within 2-3 days Family given support at bedside Admission and Anticipated Discharge Date Admission Date: July 24, 2022 Subjective Pt sleeping when I saw him and occasionally would motion with his left hand towards his abdomen, but did not wake up and talk. Family at bedside report he is more awake today and all his grandchildren have been in to see him today. Family report he has some secretions rattling in his throat Had 2 more loose black stools today as per RN Physical Exam Constitutional: + ill appearing and + lethargic Eyes: + scleral abnormality (icterus) Respiratory: normal respiratory effort; not tachypneic Auscultation: no crackles, no rhonchi and no wheezes Cardiovascular: Rate/Rhythm: regular rate and regular rhythm Heart Sounds: no murmur Extremities: + edema (trace pitting edema legs bilat) Chest (Breasts): Chest: + vascular access device or port (left anterior chest wall,no erythema) Gastrointestinal (Abdomen): Inspection/Auscultation: abdomen not distended Percussion/Palpation: abdomen soft Skin: + jaundice Results & Data Results & Data Vital Signs (Past 12 Hours) Vital Signs Temp Resp BP Pulse Ox O2 Del Method O2 Flow Rate 07/31/22 08:00 Nasal Cannula 4 07/31/22 07:45 36.4 C L 16 161/85 H 95 Nasal Cannula 4 PG Care Time/CCT Total # of Minutes Spent Total Time Spent with Patient: Total time spent is greater than 50% in coordination of care (as documented) at patient's floor/unit and/or counseling patient: Coding Level of Care Code 15881 SUB INP/OBS CARE 1/25MIN Diagnoses Comfort measures only status Z51.5 GI bleeding K92.2 Bilateral pneumonia J18.9 Lung location: unspecified part of lung Pneumonia type: due to unspecified organism Rhinovirus infection B34.8 Pancreatic cancer metastasized to liver C25.9; C78.7 Abdominal pain R10.9 Abnormal LFTs R79.89 Nausea R11.0 Pleural effusion J90 DVT (deep venous thrombosis) I82.409 Insomnia G47.00 Acute hyponatremia E87.1 Coagulopathy D68.9 Severe protein-calorie malnutrition E43 DVT prophylaxis Z29.9 (3) Bilateral pneumonia Lung location: unspecified part of lung Pneumonia type: due to unspecified organism Qualified Code(s): J18.9 - Pneumonia, unspecified organism
[2022-08-01] MEDS: ONDANSETRON INJ 2 MG/ML 2 ML VIAL IV SCH ×3 (09:53→20:46)
--- NOTE | 2022-08-01 12:27 | Palliative Care Progress Note ---
Date of Service August 01, 2022 Assessment & Plan (1) Abdominal pain: Plan: Appears to be controlled with morphine infusion. No signs of opioid toxicity. Continue at 1mg/hr (2) Dyspnea: Plan: Controlled with morphine infusion (3) Palliative care encounter: Plan: Spoke with Mrs. Pepper and her son, Gene, at bedside. Kd appears comfortable and does not require adjustment in medication regimen. He does appear to be imminently dying. Talked about signs that he is likely to today. They have had the opportunity for family and extending family to visit and provide support. They are going to call his daughter, Ana to see if she wants to return to hospital. They are coping as expected. Provided support. Discussed with Dr. Nesbitt who was also present at visit. Admission and Anticipated Discharge Date Admission Date: July 24, 2022 Subjective No response to voice or touch. No prn morphine dosing last 24 hours. Appears comfortable. Review of Systems Review of Systems: Unobtainable due to reduced consciousness Physical Exam Constitutional: + ill appearing; no acute distress ENMT: Mouth: + dry oral mucous membranes Respiratory: no labored breathing no audible tracheal secretions, apnea Cardiovascular: Rate/Rhythm: regular rhythm Extremities: + edema mottling of feet and knees noted Skin: cool, pale Neurologic: + obtunded no myoclonus Results & Data Vital Signs (Past 12 Hours) Vital Signs Temp Pulse Resp BP Pulse Ox O2 Del Method O2 Flow Rate 08/01/22 07:30 97.7 F 85 16 62/48 L 95 Nasal Cannula 4 PG Care Time/CCT Total # of Minutes Spent Total Time Spent: 40 Total Time Spent with Patient: Total time spent is greater than 50% in coordination of care (as documented) at patient's floor/unit and/or counseling patient: prognosis, family education and support Coding Level of Care Code 88058 SUB INP/OBS CARE 2/35MIN Diagnoses Abdominal pain R10.9 Dyspnea R06.00 Palliative care encounter Z51.5
--- NOTE | 2022-08-01 17:58 | Hospitalist Progress Note ---
Date of Service August 01, 2022 Assessment & Plan (1) Comfort measures only status: Plan: Given metastatic pancreatic cancer, failure to thrive, severe protein calorie malnutrition, abdominal pain, Rhinovirus infection with pneumonia, worsening liver dysfunction, and now acute GI bleed, with poor functional status to continue on with any further chemotherapy, Mr. Pepper has transitioned to comfort measures only on 07/29 FITNESS/WELLNESS DIRECTOR No signs of distress or pain on morphine GTT, currently at 1 mg/h -continue morphine gtt -lorazepam as needed and scheduled hs -robinul prn secretions-will have RN give dose now -dcd all abx, IVFs, blood draws -condom catheter in place - Appreciate Palliative Medicine management (2) GI bleeding: Plan: New onset on the morning of 07/28, likely upper GI bleed given dark stools and then transitioned to multiple maroon and BRBPR stools overnight and into 07/29 Transfused 2 units PRBCS fo rhgb drop down to 7.9 and ongoing hemorrhage Seen by GI and too frail for scopes, plus transitioning to FITNESS/WELLNESS DIRECTOR. Not likely amenable to any definitive treatment continues to have melena daily but no further bright red blood so bleed likely stopped received Protonix twice daily x 3 days, now will stop no further labs draws or transfusions now as transitioned to FITNESS/WELLNESS DIRECTOR (3) Bilateral pneumonia: Plan: [employer] respiratory panel + for rhinovirus. Given his significant leukocytosis + elevated procal along with immunocompromised status bacterial superinfection is possible. Was started on Zosyn and azithromycin Changed to cefepime and Flagyl as well as vancomycin despite negative MRSA swab on 07/27 to cover for GI source and in case of resistant gram-negative pneumonia- no culture data to follow Leukocytosis not much improved Unclear if leukocytosis from pneumonia versus pancreatic duct obstruction and metastatic cancer Dcd all antibiotics after transitioning to FITNESS/WELLNESS DIRECTOR (4) Rhinovirus infection: Plan: [employer] panel + for such. (5) Pancreatic cancer metastasized to liver: Plan: severe stage 4 pancreatic cancer with extensive mets to liver, adrenal gland, lungs, bone he has done poorly with recent chemotherapy and continues to have failure to thrive with weight loss, refractory nausea, poor appetite, etc. LFTs continue to rise, and metastatic disease is progressing. Appreciate heme/onc and Palliative consultations Very poor prognosis, cannot tolerate further chemotherapy Transitioned to FITNESS/WELLNESS DIRECTOR (6) Abdominal pain: Plan: likely multifactorial - hepatomegaly from the liver mets & capsular stretch/sw elling, gastritis, esophagitis, the primary pancreatic mass itself, etc - could all be contributing. checking MRCP to r/o CBD obstruction-shows progression of liver mets but no ductal dilation in the liver but with pancreatic ductal obstruction received IV ppi twice daily x 3 days-now stopped Now with GI bleeding ongoing Started morphine gtt No signs of pain/distress at 6/5 assessment (7) Abnormal LFTs: Plan: due to worsening metastatic tumor burden of liver. cannot rule out biliary obstruction given the ongoing rise of his t.bili, d.bili, and alk phos. CT a/p findings noted. Obtained MRCP - no CBD obstruction. secondary to progressive mets in liver Additional labs deferred as patient is FITNESS/WELLNESS DIRECTOR (8) Nausea: Plan: Refractory to multiple meds. He has had nausea for many weeks, even months. Nausea preceded the institution of chemotherapy for his advanced pancreatic ca. Symptomatic care, currently FITNESS/WELLNESS DIRECTOR (9) Pleural effusion: Plan: b/l effusions. Not much improved with Lasix and DuoNebs, may also have shortness of breath related to anxiety likely transudative from severe hypoalbuminemia (albumin is 1.9). can't rule out exudative effusions from cancer. pneumonia could be contributing but much less likely. morphine gtt for dyspnea (10) DVT (deep venous thrombosis): Plan: 05/2022 - RLE Doppler with - "Thrombosed superficial veins involving the greater saphenous vein and multiple varicosities of the medial knee." He has coagulopathy with INR of 1.8 - likely due to liver dysfunction in setting of liver infiltration from his cancer dc Eliquis for GI bleeding (11) Insomnia: Plan: dcd seroquel HS and dcd melatonin HS using lorazepam (12) Acute hyponatremia: Plan: continued to worsen to 124 likely intravascularly depleted but is hypervolemic due to third spacing, hypoalbuminemia cortisol wnl, TSH normal no further lab draws (13) Coagulopathy: Plan: INR 1.8 this admission last INR was 1.1 in April Eliquis can cause some elevation but it is usually mild (e.g. 1.3, 1.4) suspect the main culprit is decreased synthetic function in the setting of severe metastatic disease to the liver doubt vit K deficiency (14) Severe protein-calorie malnutrition: Plan: 10kg of weight loss in <2 months he cannot tolerate regular food , was barely eating liquids/clears poor candidate for NG tube feedings for a variety of reasons poor candidate for TPN due to significantly abnormal LFTs, high risk for infection in light of recent chemotherapy and current infectious process, etc transitioned to FITNESS/WELLNESS DIRECTOR (15) DVT prophylaxis: Plan: eliquis 5mg BID now stopped for GI bleed Plan Dispo-on FITNESS/WELLNESS DIRECTOR, remains on med/surg, patient is not responsive to voice or touch on 08/01, suspect he will pass within the next 1-2 days Family given support at bedside Admission and Anticipated Discharge Date Admission Date: July 24, 2022 Subjective Seen at bedside with family present. Does not respond to voice, does not respond/withdraw to touch. Eyes fixed and open, pupils are responsive to light. Review of Systems Review of Systems: Unobtainable due to cognitive status Physical Exam Physical Exam: General: Eyes open, Does not track objects. Does not respond to voice or touch. Appears ill Skin: Cool, dry. Lungs: Diminished, symmetrical chest rise. No agonal breathing Cardiac: Heart rate regular by radial pulse Results & Data Results & Data Vital Signs (Past 12 Hours) Vital Signs Temp Pulse Resp BP Pulse Ox O2 Del Method O2 Flow Rate 08/01/22 07:30 36.5 C 85 16 62/48 L 95 Nasal Cannula 4 PG Care Time/CCT Total # of Minutes Spent Total Time Spent with Patient: Total time spent is greater than 50% in coordination of care (as documented) at patient's floor/unit and/or counseling patient: Coding Level of Care Code 34075 SUB INP/OBS CARE 2/35MIN Diagnoses Comfort measures only status Z51.5 GI bleeding K92.2 Bilateral pneumonia J18.9 Lung location: unspecified part of lung Pneumonia type: due to unspecified organism Rhinovirus infection B34.8 Pancreatic cancer metastasized to liver C25.9; C78.7 Abdominal pain R10.9 Abnormal LFTs R79.89 Nausea R11.0 Pleural effusion J90 DVT (deep venous thrombosis) I82.409 Insomnia G47.00 Acute hyponatremia E87.1 Coagulopathy D68.9 Severe protein-calorie malnutrition E43 DVT prophylaxis Z29.9 (3) Bilateral pneumonia Lung location: unspecified part of lung Pneumonia type: due to unspecified organism Qualified Code(s): J18.9 - Pneumonia, unspecified organism
[2022-08-02] MEDS: ONDANSETRON INJ 2 MG/ML 2 ML VIAL IV SCH (07:51)
--- NOTE | 2022-08-02 09:18 | Death Pronouncement Note ---
Date of Service August 02, 2022 Pronouncement Note Admission Date July 24, 2022 Date and Time of Date of : 08/02/22 Time of : 07:15 Preliminary Cause of (1) Pancreatic cancer metastasized to liver: Additional Data Confirmation of : no pulse, no respirations, no heart sounds and pupils fixed and dilated Pronouncement Performed By: Nursing Family: at bedside Attending/PCP notified?: Yes Attending physician: Bo Blake MD Was code activated?: No Autopsy requested?: No greige goods examiner notified?: No Coding Level of Care Code None Diagnoses Pancreatic cancer metastasized to liver C25.9; C78.7
--- NOTE | 2022-08-02 09:19 | Discharge Summary ---
Date of Service date of admission - July 24, 2022 date of - August 02, 2022 time of - 07:15 Admission HPI Per Admitting Provider Kd Pepper is a 72 year old male with metastatic pancreatic cancer currently undergoing chemotherapy who presents to the ER due to progressive worsening shortness of breath. He reports generalized progressive decline over months since his cancer diagnosis with chills, decreased appetite, oropharyngeal dysphagia, nausea, mild intermittent abdominal cramping and generalized weakness. He was hospitalized here in early June due to post chemotherapy nausea and vomiting. He reports his only new symptoms is progressive worsening shortness of breath. However later on review of symptoms he has also noted his urine burning for yesterday and today. All other symptoms have been going on for months. He notes pills getting stuck in his throat, especially the creon which he puts down to his mouth being so dry. No choking after eating but he does have upcoming speech and language assessment due to concern for his swallowing. Principal Diagnosis State 4 pancreatic cancer Discharge Exam at time of - pupils were fixed/dilated, no spontaneous respiratory effort, no audible heart tones, no response to pain/voice (final exam performed by nursing staff at time of pronouncement) Discharge Data Allergies Allergy/AdvReac Type Severity Reaction Status Date / Time amlodipine [From Exforge] Allergy Severe Swelling Verified 07/24/22 17:37 of Lip/Tongue/Throat valsartan [From Exforge] Allergy Severe Swelling Verified 07/24/22 17:37 of Lip/Tongue/Throat aspirin Allergy Intermediate Hives Verified 07/24/22 17:37 atorvastatin [From Lipitor] Allergy Intermediate Muscle Pain Verified 07/24/22 17:37 benzonatate Allergy Unknown Unknown Verified 07/24/22 17:37 NSAIDS (Non-Steroidal Allergy Unknown Unknown Verified 07/24/22 17:37 Anti-Inflamma amoxicillin AdvReac Intermediate Diarrhea Verified 07/24/22 17:37 Consultations Oncology Palliative Care Gastroenterology Procedures Performed 2 units of PRBCs Ordered Studies 07/24/22 17:11 CT abd pelvis IV con only Stat CT angio chest PE protocol Stat 07/25/22 13:17 MR MRCP Urgent 07/25/22 13:[address] [CT head/brain wo con] Routine Hospital Course (1) Pancreatic cancer metastasized to liver: The patient had presented with intractable nausea, abdominal pain, severe protein calorie malnutrition, failure to thrive, rhinovirus infection, bilateral pneumonia, sepsis, worsening LFTs and coagulopathy. Imaging was consistent with progressive stage 4 pancreatic cancer with extensive mets to liver, adrenal gland, lungs, etc. The patient overall did poorly during the stay despite supportive care for his pneumonia, nausea, abdominal pain, and other acute/chronic problems. Later in the stay it appeared he had developed acute GI bleeding with drop in hemoglobin and dark stools. He was transfused PRBCs for such. The patient and his family had numerous discussions with palliative care and oncology. Given his ongoing decline despite maximal medical efforts he was transitioned to comfort care measures on 07/29/22. He remained on such until his peaceful passing on the AM of August 02. (2) Palliative care encounter: (3) Comfort measures only status: (4) GI bleeding: (5) Acute blood loss anemia: (6) Bilateral pneumonia: (7) Sepsis: (8) Severe protein-calorie malnutrition: (9) Coagulopathy: (10) Abdominal pain: (11) Nausea: (12) Rhinovirus infection: (13) Oropharyngeal dysphagia: (14) Abnormal LFTs: (15) Benign enlargement of prostate: (16) History of DVT (deep vein thrombosis): Total Time Total Time Spent Total Time Spent (In Minutes): 20 Discharge Plan Discharge Items Patient Disposition: Other Date/Time: 08/02/22 07:15 Coding Level of Care Code 10039 IN/OBS DISCH 30 MIN/LESS Diagnoses Pancreatic cancer metastasized to liver C25.9; C78.7 Palliative care encounter Z51.5 Comfort measures only status Z51.5 GI bleeding K92.2 Acute blood loss anemia D62 Bilateral pneumonia J18.9 Lung location: unspecified part of lung Pneumonia type: due to unspecified organism Sepsis A41.9 Sepsis acute organ dysfunction status: unspecified Sepsis type: sepsis due to unspecified organism Severe protein-calorie malnutrition E43 Coagulopathy D68.9 Abdominal pain R10.9 Nausea R11.0 Rhinovirus infection B34.8 Oropharyngeal dysphagia R13.12 Abnormal LFTs R79.89 Benign enlargement of prostate N40.0 History of DVT (deep vein thrombosis) Z86.718
== END 2022-08-02 09:37 | disposition expired | DRG 871 ==
LOC: ED 15:37 → 4W 17:23 → SUATTDRO 17:23 → 4W 20:05 → 3W 07-29 23:11